=== PATIENT | male | born 1960 | race African-American/Black ===

== ENCOUNTER 2018-09-13 17:38 | Inpatient (IN) | payer OTHER ==
[~2018-09-13] VITALS: Ht 182.9 cm; Wt 54.9 kg
[2018-09-13 17:43] VITALS: BP 115/63
--- NOTE | 2018-09-13 17:43 | NUR ---
ED Nurse Note: PT BROUGHT IN BY EMS FROM [facility] DUE TO FALL INCIDENT AROUND 1230 AND UNWITNESSED. PER EMS, PT WAS COMPLAINING OF LEFT HIP PAIN. NO APPARENT BRUISING OR OPEN WOUNDS. AAO X1 , NON AMBULATORY, WITH NON LABORED BREATHING.
--- NOTE | 2018-09-13 18:32 | NUR ---
ED Nurse Note: COLLECTED BLOOD THEN SENT.
[2018-09-13 18:38] LABS: EOSINOPHILS % (AUTO) 1.1 % (0.0-3.0); HEMATOCRIT 35.7 % (42.0-52.0); LYMPHOCYTES % (AUTO) 17.2 % (20.0-45.0); MEAN CORPUSCULAR VOLUME 71 FL (80-99); MONOCYTES % (AUTO) 7.8 % (1.0-10.0); NEUTROPHILS % (AUTO) 72.9 % (45.0-75.0); PLATELET COUNT 275 K/UL (150-450); RED BLOOD COUNT 5.05 M/UL (4.70-6.10); RED CELL DISTRIBUTION WIDTH 16.9 % (11.6-14.8); WHITE BLOOD COUNT 7.6 K/UL (4.8-10.8)
--- NOTE | 2018-09-13 18:58 | Diagnostic Imaging Report ---
Indication: Pelvic pain Technique: Continuous helical transaxial imaging of the pelvis was obtained from the iliac crest to the pubic symphysis. Coronal 2-D reformats were also obtained. Study obtained in a Siemens sensation [address] Intravenous non-ionic contrast was administered. Total Dose length Product (DLP): 499.[address] Dose Index Volume (CTDIvol): 9.22,9.22 mGy Comparison: None Findings: There is an acute nondisplaced fracture of the intertrochanteric aspect of the left hip. The bones are osteopenic. Degenerative changes of the lower lumbar spine are demonstrated. Aorta is calcified. IVC filter partially visualized. Moderate stool noted. There is a sacral decubitus ulcer noted posteriorly. The possibility of underlying erosion of part of the sacrum is not excluded. Generalized subcutaneous edema noted. Correlate clinically. The bladder is moderately distended. IMPRESSION: Acute intratrochanteric fracture of the left hip. Sacral decubitus ulcer posterior to the coccygeal region. Osteomyelitis is possible. Correlate clinically. Other findings as above. [facility] has communicated the preliminary results to the Emergency Department. Their findings are largely concordant with this report. The CT scanner at [facility] is accredited by the [employer] and the scans are performed using dose optimization techniques as appropriate to a performed exam including Automatic Exposure control.
--- NOTE | 2018-09-13 19:02 | NUR ---
ED Nurse Note: COLLECTED URINE THEN SENT.
--- NOTE | 2018-09-13 19:13 | NUR ---
ED Nurse Note: Patient in bed eating, no s/s of acute distress. Patient is confused, talkative and lying comfortably.
--- NOTE | 2018-09-13 19:13 | NUR ---
HAND-OFF: Report given to JULISSA DAVENPORT.
[2018-09-13 19:20] LABS: APPEARANCE,URINE SLIGHTLY CLOUDY; BILIRUBIN, URINE NEGATIVE (NEGATIVE); COLOR,URINE PALE YELLOW; GLUCOSE, URINE (UA) NEGATIVE (NEGATIVE); KETONES,URINE NEGATIVE (NEGATIVE); LEUKOCYTE ESTERASE ,URINE 2+ (NEGATIVE); NITRITE,URINE POSITIVE (NEGATIVE); PH,URINE 6 (4.5-8.0); PROTEIN,URINE NEGATIVE (NEGATIVE); UROBILINOGEN,URINE NORMAL MG/DL (0.0-1.0)
[2018-09-13 19:26] LABS: ALANINE AMINOTRANSFERASE 36 U/L (12-78); ALBUMIN 3.3 G/DL (3.4-5.0); ALBUMIN/GLOBULIN RATIO 0.8 (1.0-2.7); ALKALINE PHOSPHATASE 75 U/L (46-116); ASPARTATE AMINO TRANSFERASE 17 U/L (15-37); BILIRUBIN,TOTAL 0.4 MG/DL (0.2-1.0); BLOOD UREA NITROGEN 14 mg/dL (7-18); CALCIUM 9.4 MG/DL (8.5-10.1); CARBON DIOXIDE 24 MMOL/L (21-32); CREATINE KINASE 67 U/L (26-308); CREATININE 0.6 MG/DL (0.55-1.30)
--- NOTE | 2018-09-13 19:33 | Emergency Room Report ---
History of Present Illness General Chief Complaint: Multiple Trauma/Fall Source: Patient, EMS Present Illness HPI Patient presents by paramedics for reports of left-sided hip pain History of present illness is limited as the patient is able to provide some input however does have history of dementia Patient reported to be having pain to the left hip after a possible fall patient himself Initially complained of abdominal pain and chest pain after further questioning he does complain of left-sided hip pain There is question if the patient is usually on a wheelchair Allergies: Coded Allergies: No Known Allergies (Unverified , 09/13/18) Patient History Limited by: medical condition Past Medical History: see triage record Reviewed Nursing Documentation: PMH: Agreed; PSxH: Agreed Nursing Documentation-PMH Past Medical History: No History, Except For Hx Hypertension: Yes - Dysphagia, Sacral Pressure Ulcer stage 4 Review of Systems All Other Systems: limited - Other than the ones mentioned in the history of present illness all others are reviewed however they do stay limited due to the patient's mental status Physical Exam Vital Signs Date Time Temp Pulse Resp B/P (MAP) Pulse Ox O2 Delivery O2 Flow Rate FiO2 09/13/18 17:33 98.1 92 20 107/74 (85) 97 Room Air Sp02 EP Interpretation: reviewed, normal General Appearance: no apparent distress Head: normocephalic, atraumatic Eyes: bilateral eye PERRL ENT: normal pharynx, no angioedema Neck: supple Respiratory: lungs clear, no respiratory distress, no retraction Cardiovascular #1: regular rate, rhythm Gastrointestinal: non tender, soft Musculoskeletal: other - Very difficult exam patient does not follow all commands appropriately he does have equal piece hand on the upper extremity patient had some discomfort trying to extend the lower legs Neurologic: responsive - With decreased awareness Skin: no rash Lymphatic: no adenopathy Medical Decision Making Diagnostic Impression: Primary Impression: Multiple injuries due to trauma Additional Impressions: Closed left hip fracture Weak ER Course Multiple differentials and consideration Etiology of the fall was also further investigated for possible other cardiac type pathology CT imaging does show Subtle, Intertrochanteric fracture Patient's blood work otherwise at baseline levels and the patient will be admitted for further inpatient consultation Labs Test 09/13/18 18:25 09/13/18 19:00 09/14/18 04:52 09/15/18 06:01 White Blood Count 7.6 K/UL (4.8-10.8) 7.0 K/UL (4.8-10.8) 4.7 K/UL (4.8-10.8) Red Blood Count 5.05 M/UL (4.70-6.10) 5.11 M/UL (4.70-6.10) 5.11 M/UL (4.70-6.10) Hemoglobin 11.0 G/DL (14.2-18.0) 11.0 G/DL (14.2-18.0) 11.1 G/DL (14.2-18.0) Hematocrit 35.7 % (42.0-52.0) 36.4 % (42.0-52.0) 36.8 % (42.0-52.0) Mean Corpuscular Volume 71 FL (80-99) 71 FL (80-99) 72 FL (80-99) Mean Corpuscular Hemoglobin 21.8 PG (27.0-31.0) 21.5 PG (27.0-31.0) 21.7 PG (27.0-31.0) Mean Corpuscular Hemoglobin Concent 30.9 G/DL (32.0-36.0) 30.1 G/DL (32.0-36.0) 30.1 G/DL (32.0-36.0) Red Cell Distribution Width 16.9 % (11.6-14.8) 17.6 % (11.6-14.8) 17.9 % (11.6-14.8) Platelet Count 275 K/UL (150-450) 284 K/UL (150-450) 262 K/UL (150-450) Mean Platelet Volume 5.5 FL (6.5-10.1) 5.2 FL (6.5-10.1) 5.3 FL (6.5-10.1) Neutrophils (%) (Auto) 72.9 % (45.0-75.0) 73.2 % (45.0-75.0) 57.3 % (45.0-75.0) Lymphocytes (%) (Auto) 17.2 % (20.0-45.0) 17.0 % (20.0-45.0) 28.2 % (20.0-45.0) Monocytes (%) (Auto) 7.8 % (1.0-10.0) 8.0 % (1.0-10.0) 9.2 % (1.0-10.0) Eosinophils (%) (Auto) 1.1 % (0.0-3.0) 1.3 % (0.0-3.0) 4.3 % (0.0-3.0) Basophils (%) (Auto) 1.0 % (0.0-2.0) 0.6 % (0.0-2.0) 1.1 % (0.0-2.0) Sodium Level 138 MMOL/L (136-145) 142 MMOL/L (136-145) 140 MMOL/L (136-145) Potassium Level 3.8 MMOL/L (3.5-5.1) 3.3 MMOL/L (3.5-5.1) 3.7 MMOL/L (3.5-5.1) Chloride Level 104 MMOL/L (98-107) 105 MMOL/L (98-107) 105 MMOL/L (98-107) Carbon Dioxide Level 24 MMOL/L (21-32) 28 MMOL/L (21-32) 25 MMOL/L (21-32) Anion Gap 10 mmol/L (5-15) 9 mmol/L (5-15) 10 mmol/L (5-15) Blood Urea Nitrogen 14 mg/dL (7-18) 9 mg/dL (7-18) 6 mg/dL (7-18) Creatinine 0.6 MG/DL (0.55-1.30) 0.5 MG/DL (0.55-1.30) 0.6 MG/DL (0.55-1.30) Estimat Glomerular Filtration Rate > 60 mL/min (>60) > 60 mL/min (>60) > 60 mL/min (>60) Glucose Level 114 MG/DL (74-106) 109 MG/DL (74-106) 93 MG/DL (74-106) Calcium Level 9.4 MG/DL (8.5-10.1) 9.7 MG/DL (8.5-10.1) 10.3 MG/DL (8.5-10.1) Total Bilirubin 0.4 MG/DL (0.2-1.0) 0.7 MG/DL (0.2-1.0) Aspartate Amino Transf (AST/SGOT) 17 U/L (15-37) 12 U/L (15-37) Alanine Aminotransferase (ALT/SGPT) 36 U/L (12-78) 31 U/L (12-78) Alkaline Phosphatase 75 U/L (46-116) 69 U/L (46-116) Total Creatine Kinase 67 U/L (26-308) Creatine Kinase MB 1.0 NG/ML (0.0-3.6) Creatine Kinase MB Relative Index 1.4 Troponin I 0.000 ng/mL (0.000-0.056) Total Protein 7.2 G/DL (6.4-8.2) 7.1 G/DL (6.4-8.2) Albumin 3.3 G/DL (3.4-5.0) 3.7 G/DL (3.4-5.0) Globulin 3.9 g/dL 3.4 g/dL Albumin/Globulin Ratio 0.8 (1.0-2.7) 1.1 (1.0-2.7) Urine Color Pale yellow Urine Appearance Slightly cloudy Urine pH 6 (4.5-8.0) Urine Specific [place] 1.010 (1.005-1.035) Urine Protein Negative (NEGATIVE) Urine Glucose (UA) Negative (NEGATIVE) Urine Ketones Negative (NEGATIVE) Urine Blood 2+ (NEGATIVE) Urine Nitrite Positive (NEGATIVE) Urine Bilirubin Negative (NEGATIVE) Urine Urobilinogen Normal MG/DL (0.0-1.0) Urine Leukocyte Esterase 2+ (NEGATIVE) Urine RBC 0-2 /HPF (0 - 0) Urine WBC 15-20 /HPF (0 - 0) Urine Squamous Epithelial Cells Few /LPF (NONE/OCC) Urine Bacteria Many /HPF (NONE) Thyroid Stimulating Hormone (TSH) 3.514 uiU/mL (0.358-3.740) Test 09/16/18 05:45 White Blood Count 4.8 K/UL (4.8-10.8) Red Blood Count 5.07 M/UL (4.70-6.10) Hemoglobin 11.2 G/DL (14.2-18.0) Hematocrit 36.3 % (42.0-52.0) Mean Corpuscular Volume 72 FL (80-99) Mean Corpuscular Hemoglobin 22.0 PG (27.0-31.0) Mean Corpuscular Hemoglobin Concent 30.8 G/DL (32.0-36.0) Red Cell Distribution Width 17.7 % (11.6-14.8) Platelet Count 275 K/UL (150-450) Mean Platelet Volume 5.2 FL (6.5-10.1) Neutrophils (%) (Auto) 62.3 % (45.0-75.0) Lymphocytes (%) (Auto) 25.1 % (20.0-45.0) Monocytes (%) (Auto) 9.6 % (1.0-10.0) Eosinophils (%) (Auto) 2.4 % (0.0-3.0) Basophils (%) (Auto) 0.6 % (0.0-2.0) Rhythm Strip Diag. Results EP Interpretation: yes Rate: 80 Rhythm: NSR, no PVC's, no ectopy Chest X-Ray Diagnostic Results Chest X-Ray Diagnostic Results : Chest X-Ray Ordered: Yes # of Views/Limited/Complete: 1 View Indication: Chest Pain EP Interpretation: Yes Interpretation: no consolidation, no effusion, no pneumothorax Impression: No acute disease Electronically Signed by: Gabriel Singer DO CT/MRI/US Diagnostic Results CT/MRI/US Diagnostic Results : Impression CT pelvicCT PELVIS Without Contrast: Subtle left intratrochanteric femoral fracture. Correlate for a decubitus ulcer in the sacrococcygeal area. Underlying osteomyelitis is not excluded. Old right L4 transverse process fracture. Old sacral fracture. IVC filter. Presacral edema. Last Vital Signs Date Time Temp Pulse Resp B/P (MAP) Pulse Ox O2 Delivery O2 Flow Rate FiO2 09/13/18 17:43 98.1 78 18 115/63 99 Room Air Status: improved Disposition: ADMITTED INPATIENT Condition: Serious Referrals: NON PHYSICIAN (PCP) Gabriel Singer DO Sep 13, 2018 19:33
[2018-09-13 20:01] LABS: SODIUM 138 MMOL/L (136-145)
[2018-09-13 20:02] LABS: CHLORIDE 104 MMOL/L (98-107); POTASSIUM 3.8 MMOL/L (3.5-5.1)
[2018-09-13 20:03] LABS: ANION GAP 10 mmol/L (5-15)
--- NOTE | 2018-09-13 20:13 | NUR ---
ED Nurse Note: PATIENT RESTING IN BED, DELUSIONAL ACTIVITY, STILL MILDLY COOPERATIVE. WILL CONTINUE TO MONITOR.
--- NOTE | 2018-09-13 21:03 | NUR ---
ED Nurse Note: CALLED AND TRIED TO GIVE REPORT, RECEIVING NURSE NEEDS MORE TIME TO CARRY OUT PREVIOUS TASKS. WILL CALL AGAIN.
--- NOTE | 2018-09-13 21:29 | NUR ---
ED Nurse Note: CALLED AGAIN TO GIVE REPORT TO BEL DAVENPORT. REPORT TAKEN.
[2018-09-13] MEDS ORDERED: Zolpidem 5mg tab ORAL PRN (21:30)
[2018-09-13] MEDS ORDERED: Morphine Sulfate 4mg/ml Inj (IV USE ONLY) IVP PRN (21:30)
[2018-09-13] MEDS ORDERED: LORazepam Inj 2mg/ml 1ml IV PRN (21:30)
[2018-09-13] MEDS ORDERED: Morphine Sulfate 2mg/ml Inj(IV/IM USE ONLY) IVP PRN (21:30)
[2018-09-13] MEDS ORDERED: Miralax 17gm pkt ORAL PRN (21:30)
--- NOTE | 2018-09-13 21:32 | NUR ---
ED Nurse Note: PATIENT TRANSPORTED TO FLOOR BY [employer].
[2018-09-13] MEDS ORDERED: THIAMINE HCL500 MG PO (21:42)
[2018-09-13] MEDS ORDERED: MULTIVITAMINS1 EAC2 ORAL (21:42)
[2018-09-13] MEDS ORDERED: SENNA8.6 M2 PO (21:42)
[2018-09-13] MEDS ORDERED: [UNRECOGNIZED DRUG - OTHER] TP (21:42)
[2018-09-13] MEDS ORDERED: MEGACE (21:42)
[2018-09-13] MEDS ORDERED: PRO-STAT LIQUID30 ML ORAL (21:42)
[2018-09-13] MEDS ORDERED: NORVASC5 MG ORAL (21:42)
[2018-09-13] MEDS ORDERED: FOLIC ACID1 MG ORAL (21:42)
[2018-09-13] MEDS ORDERED: MEGESTROL400 MG/11 PO (21:42)
[2018-09-13] MEDS ORDERED: ACETAMINOPHEN325 M1 ORAL (21:42)
[2018-09-13] MEDS ORDERED: VITAMIN C250 MG ORAL (21:42)
--- NOTE | 2018-09-13 21:54 | NUR ---
NURSE NOTES: Pt confused, talkative, trying to get out of bed, vitals 116/81, 105hr, 98 temp, 100%ra, called Dr. Logan for admitting orders, waiting for orders.
[2018-09-13] MEDS ORDERED: ZINC50 M1 ORAL (23:18)
[2018-09-13] MEDS: D5 1/2NS 1,000 ML IV SCH (23:49)
[2018-09-14 04:00] VITALS: BP 103/77
[2018-09-14 06:22] LABS: BASOPHILS % (AUTO) 0.6 % (0.0-2.0); EOSINOPHILS % (AUTO) 1.3 % (0.0-3.0); HEMATOCRIT 36.4 % (42.0-52.0); MEAN CORPUSCULAR VOLUME 71 FL (80-99); NEUTROPHILS % (AUTO) 73.2 % (45.0-75.0); PLATELET COUNT 284 K/UL (150-450); RED BLOOD COUNT 5.11 M/UL (4.70-6.10); RED CELL DISTRIBUTION WIDTH 17.6 % (11.6-14.8)
[2018-09-14] MEDS ORDERED: LORazepam Inj 2mg/ml 1ml IV PRN (07:00)
[2018-09-14 07:02] LABS: ALANINE AMINOTRANSFERASE 31 U/L (12-78); ALBUMIN 3.7 G/DL (3.4-5.0); ALBUMIN/GLOBULIN RATIO 1.1 (1.0-2.7); ALKALINE PHOSPHATASE 69 U/L (46-116); ANION GAP 9 mmol/L (5-15); ASPARTATE AMINO TRANSFERASE 12 U/L (15-37); BILIRUBIN,TOTAL 0.7 MG/DL (0.2-1.0); BLOOD UREA NITROGEN 9 mg/dL (7-18); CALCIUM 9.7 MG/DL (8.5-10.1); CARBON DIOXIDE 28 MMOL/L (21-32); CHLORIDE 105 MMOL/L (98-107); CREATININE 0.5 MG/DL (0.55-1.30); POTASSIUM 3.3 MMOL/L (3.5-5.1); SODIUM 142 MMOL/L (136-145)
--- NOTE | 2018-09-14 07:43 | NUR ---
HAND-OFF: Report given to ISSAC Herrera
--- NOTE | 2018-09-14 07:45 | NUR ---
NURSE NOTES: Received patient in bed, asleep @ this time. Breathing is even and unlabored. No s/s of pain or discomfort per FLACC pain scale. IVF is running 2 this time. IV site with no s/s of infiltration. Bed is in lowest position and locked. Will continue plan of care.
[2018-09-14 08:00] VITALS: BP 118/76
[2018-09-14] MEDS: Heparin 5000 units/ml inj SUBQ SCH ×2 (09:00→21:21)
--- NOTE | 2018-09-14 11:06 | Diagnostic Imaging Report ---
Indication: Chest pain Comparison: 09/13/2018 A single view chest radiograph was obtained. Findings: Bones are osteopenic. Heart size is normal. There is some prominence of interstitium but the lungs show no definite infiltrate. Aorta is mildly ectatic. IMPRESSION: Prominent pulmonary interstitium nonspecific.
[2018-09-14 12:00] VITALS: BP 136/75
--- NOTE | 2018-09-14 12:33 | NUR ---
RD ASSESSMENT & RECOMMENDATIONS SEE CARE ACTIVITY FOR COMPLETE ASSESSMENT DAILY ESTIMATED NEEDS: Needs based on Wound healing, underweight/ 54.4kg 30-35 kcals/kg 6245-3412 total kcals 1.5-2.0 g protein/kg 81-109 g total protein 25-30 mL/kg 1064-9528 total fluid mLs NUTRITION DIAGNOSIS: Increased kcal/prot needs R/T wound healing, underweight status as evidenced by pt admitted w/ sacral stage 4 wound, pt at 67% IBW w/ low BMI of 16.3. CURRENT DIET:NPO PO DIET RECOMMENDATIONS: Liberalized REGULAR diet/ texture per UTILIZATION MANAGER + Ensure Enlive TID w/ meals ADDITIONAL RECOMMENDATIONS: * Recalibrated bedscale wt for accurate CBW -> weekly wt monitoring given underweight status * Wound healing: add MVI w/ min 1 tab QD : add Vit C 500mg BID : Ren 1pkt BID w/ diet order : No need for ZnSO4 as pt was receiving it RECORDS MANAGEMENT ENGINEER * UTILIZATION MANAGER evaluation for appropriate texture * Pt on Megace 400mg QD RECORDS MANAGEMENT ENGINEER: consider re-adding it to med list * Monitor lytes, replete as needed (low K)
--- NOTE | 2018-09-14 13:45 | History and Physical Report ---
DATE OF ADMISSION: 09/13/2018 DATE AND TIME SEEN: 09/14/2018 at 12 noon. CONSULTANTS: 1. Ramiro Solis M.D. 2. Reji Llanos M.D. 3. Alen Villegas M.D. CHIEF COMPLAINT: Confusion, fall, weakness, left intertrochanteric fracture. BRIEF HISTORY: This is a 58-year-old male, who lives at [facility] apparently was confused, fell down on his left hip, came to [facility], diagnosed with left intertrochanteric fracture and admitted to medical floor. Currently, confused in bed, not talking much. REVIEW OF SYSTEMS: Not available. PAST MEDICAL HISTORY: Include encephalopathy. PAST SURGICAL HISTORY: Unknown. MEDICATIONS: Include potassium, heparin, lorazepam, , morphine, zolpidem, Zofran, and Tylenol. ALLERGIES: Denies. SOCIAL HISTORY: Positive smoke. Positive alcohol. No intravenous drug abuse. FAMILY HISTORY: Noncontributory. PHYSICAL EXAMINATION: GENERAL: Calm in bed, oriented x1, in no acute distress. VITAL SIGNS: Temperature is 99, pulse 108, respirations 20, blood pressure 119/76. CARDIOVASCULAR: No murmur. LUNGS: Distant and clear. ABDOMEN: Bowel sounds positive. Nontender. Nondistended. EXTREMITIES: No cyanosis, clubbing, or edema. The bilateral legs slightly contracted. NEUROLOGIC: The patient moves all extremities slightly weak. LABORATORY AND DIAGNOSTIC DATA: Labs at this time show hemoglobin and hematocrit 11/36, otherwise CBC is normal. BMP show potassium 3.3, creatinine 0.9. Urinalysis show 2+ leukocyte esterase. ASSESSMENT: 1. Left intertrochanteric fracture. 2. UTI. 3. Fall. 4. Weakness. 5. Confusion. PLAN: 1. Antibiotics per Infectious Disease. 2. PT and OT pending. 3. Surgery, IV fluids. 4. Orthopedic to follow. 5. Continue to follow the patient. Froilan Logan D.O. DR: CINDA JOB#: [id number] CC:
--- NOTE | 2018-09-14 14:11 | Consultation ---
Consult Note Consult Note Patient seen/evaluated. Non-ambulatory due to TBI back in April. Patient has a Stage IV Decubitus on the sacrum. Spoke with Pilar his . Recommend none surgical treatment in view of the none displaced IT fx, none ambulatory status, and Decubitus ulcer in the proximity of the left hip increasing the risk of infection. Family is in agreement. Will order PT for bed to chair transfer, toe touch weight bearing Left lower extremity. Thank you Ramiro Solis MD Sep 14, 2018 14:11
--- NOTE | 2018-09-14 14:20 | NUR ---
NURSE NOTES: Patient was seen by Dr. Solis and he spoke to patient's about plan of care. Per Dr. Solis , no surgery on him. patient's wanted to talk to Dr. Gurrola regarding discharge planning. Rn explained to the but she wanted to talk to . Rn left a message to Dr. gurrola with 's phone number.
--- NOTE | 2018-09-14 15:04 | Consultation ---
History of Present Illness General Date patient seen: Sep 14, 2018 Chief Complaint: Multiple Trauma/Fall Reason for Consultation: decubitus ulcer Present Illness HPI 58 year old male with history of TBI who presented from longterm for evaluation after fall. Patient with recent fracture seen by ortho and stage 4 sacral wound. surgery called to evaluate and assist with care. patient seen, chart reviewed, patient examined. Allergies: Coded Allergies: No Known Allergies (Unverified , 09/13/18) Medication History Scheduled Amino Acids/Protein Hydrolys (Pro-Stat Liquid), 30 ML ORAL TWICE A DAY, ( Reported) Amlodipine Besylate (Norvasc), 5 MG ORAL DAILY, (Reported) Ascorbic Acid* (Vitamin C*), 250 MG ORAL TWICE A DAY, (Reported) Folic Acid* (Folic Acid*), 1 MG ORAL DAILY, (Reported) Megestrol Acetate (Megestrol Acetate), 400 MG PO DAILY, (Reported) Multivitamins* (Multivitamins*), 1 TAB ORAL DAILY, (Reported) Petrolatum,White (White Petrolatum), 453.6 GM TP Q4HR, (Reported) Sennosides (Senna), 8.6 MG PO QHS, (Reported) Thiamine Hcl (Thiamine Hcl), Unknown Dose PO DAILY, (Reported) Zinc (Zinc), 220 MG ORAL DAILY, (Reported) Scheduled PRN Acetaminophen* (Acetaminophen 325MG Tablet*), 650 MG ORAL Q4H PRN for Mild Pain/ Temp > 100.5, (Reported) Miscellaneous Medications [megace oral], (Reported) Patient History Limited by: medical condition History Provided By: Patient, Medical Record, PMD Healthcare decision maker Resuscitation status Full Code Advanced Directive on File Past Medical/Surgical History Past Medical/Surgical History: (1) Fall (2) Multiple injuries due to trauma (3) Subdural hematoma (4) Sacral decubitus ulcer, stage IV (5) Hypertension (6) Traumatic brain injury Review of Systems All Other Systems: negative except mentioned in HPI ROS Narrative unable to provide Physical Exam General Appearance: no apparent distress Lines, tubes and drains: peripheral HEENT: mucous membranes moist Neck: normal inspection Respiratory/Chest: no respiratory distress, no accessory muscle use, decreased breath sounds Cardiovascular/Chest: normal rate, regular rhythm Abdomen: soft, no organomegaly, no mass Extremities: normal inspection Skin Exam: warm/dry Last 24 Hour Vital Signs Date Time Temp Pulse Resp B/P (MAP) Pulse Ox O2 Delivery O2 Flow Rate FiO2 09/14/18 12:00 98.3 109 20 136/75 (95) 100 09/14/18 09:00 Room Air 09/14/18 08:00 99.0 108 20 118/76 (90) 97 09/14/18 04:00 97.5 88 20 103/77 (86) 97 09/13/18 23:18 Room Air 09/13/18 21:41 98.1 78 18 115/63 99 Room Air 09/13/18 17:43 98.1 78 18 115/63 99 Room Air 09/13/18 17:43 88 15 Room Air 09/13/18 17:33 98.1 92 20 107/74 (85) 97 Room Air Intake and Output 09/13/18 09/14/18 19:00 07:00 Intake Total 50 ml Balance 50 ml Intake IV Total 50 ml # Voids 2 Laboratory Tests Test 09/13/18 18:25 09/13/18 19:00 09/14/18 04:52 White Blood Count 7.6 K/UL (4.8-10.8) 7.0 K/UL (4.8-10.8) Red Blood Count 5.05 M/UL (4.70-6.10) 5.11 M/UL (4.70-6.10) Hemoglobin 11.0 G/DL (14.2-18.0) L 11.0 G/DL (14.2-18.0) L Hematocrit 35.7 % (42.0-52.0) L 36.4 % (42.0-52.0) L Mean Corpuscular Volume 71 FL (80-99) L 71 FL (80-99) L Mean Corpuscular Hemoglobin 21.8 PG (27.0-31.0) L 21.5 PG (27.0-31.0) L Mean Corpuscular Hemoglobin Concent 30.9 G/DL (32.0-36.0) L 30.1 G/DL (32.0-36.0) L Red Cell Distribution Width 16.9 % (11.6-14.8) H 17.6 % (11.6-14.8) H Platelet Count 275 K/UL (150-450) 284 K/UL (150-450) Mean Platelet Volume 5.5 FL (6.5-10.1) L 5.2 FL (6.5-10.1) L Neutrophils (%) (Auto) 72.9 % (45.0-75.0) 73.2 % (45.0-75.0) Lymphocytes (%) (Auto) 17.2 % (20.0-45.0) L 17.0 % (20.0-45.0) L Monocytes (%) (Auto) 7.8 % (1.0-10.0) 8.0 % (1.0-10.0) Eosinophils (%) (Auto) 1.1 % (0.0-3.0) 1.3 % (0.0-3.0) Basophils (%) (Auto) 1.0 % (0.0-2.0) 0.6 % (0.0-2.0) Sodium Level 138 MMOL/L (136-145) 142 MMOL/L (136-145) Potassium Level 3.8 MMOL/L (3.5-5.1) 3.3 MMOL/L (3.5-5.1) L Chloride Level 104 MMOL/L (98-107) 105 MMOL/L (98-107) Carbon Dioxide Level 24 MMOL/L (21-32) 28 MMOL/L (21-32) Anion Gap 10 mmol/L (5-15) 9 mmol/L (5-15) Blood Urea Nitrogen 14 mg/dL (7-18) 9 mg/dL (7-18) Creatinine 0.6 MG/DL (0.55-1.30) 0.5 MG/DL (0.55-1.30) L Estimat Glomerular Filtration Rate > 60 mL/min (>60) > 60 mL/min (>60) Glucose Level 114 MG/DL (74-106) H 109 MG/DL (74-106) H Calcium Level 9.4 MG/DL (8.5-10.1) 9.7 MG/DL (8.5-10.1) Total Bilirubin 0.4 MG/DL (0.2-1.0) 0.7 MG/DL (0.2-1.0) Aspartate Amino Transf (AST/SGOT) 17 U/L (15-37) 12 U/L (15-37) L Alanine Aminotransferase (ALT/SGPT) 36 U/L (12-78) 31 U/L (12-78) Alkaline Phosphatase 75 U/L (46-116) 69 U/L (46-116) Total Creatine Kinase 67 U/L (26-308) Creatine Kinase MB 1.0 NG/ML (0.0-3.6) Creatine Kinase MB Relative Index 1.4 Troponin I 0.000 ng/mL (0.000-0.056) Total Protein 7.2 G/DL (6.4-8.2) 7.1 G/DL (6.4-8.2) Albumin 3.3 G/DL (3.4-5.0) L 3.7 G/DL (3.4-5.0) Globulin 3.9 g/dL 3.4 g/dL Albumin/Globulin Ratio 0.8 (1.0-2.7) L 1.1 (1.0-2.7) Urine Color Pale yellow Urine Appearance Slightly cloudy Urine pH 6 (4.5-8.0) Urine Specific [place] 1.010 (1.005-1.035) Urine Protein Negative (NEGATIVE) Urine Glucose (UA) Negative (NEGATIVE) Urine Ketones Negative (NEGATIVE) Urine Blood 2+ (NEGATIVE) H Urine Nitrite Positive (NEGATIVE) H Urine Bilirubin Negative (NEGATIVE) Urine Urobilinogen Normal MG/DL (0.0-1.0) Urine Leukocyte Esterase 2+ (NEGATIVE) H Urine RBC 0-2 /HPF (0 - 0) H Urine WBC 15-20 /HPF (0 - 0) H Urine Squamous Epithelial Cells Few /LPF (NONE/OCC) Urine Bacteria Many /HPF (NONE) H Thyroid Stimulating Hormone (TSH) 3.514 uiU/mL (0.358-3.740) Height (Feet): 6 Height (Inches): 0.00 Weight (Pounds): 120 Medications Current Medications Medications (Trade) Dose Ordered Sig/Thomas Route PRN Reason Start Time Stop Time Status Last Admin Dose Admin Acetaminophen (Tylenol) 650 mg Q4H PRN ORAL fever 09/13/18 21:30 10/13/18 21:29 Dextrose (Dextrose 50%) 25 ml Q30M PRN IV Hypoglycemia 09/13/18 21:30 8/18/19 21:29 Dextrose (Dextrose 50%) 50 ml Q30M PRN IV Hypoglycemia 09/13/18 21:30 10/13/18 21:29 Dextrose/Sodium Chloride 1,000 ml @ 50 mls/hr Q20H IV 09/13/18 21:24 10/13/18 21:23 09/13/18 23:49 Heparin Sodium (Porcine) (Heparin 5000 units/ml) 5,000 units EVERY 12 HOURS SUBQ 09/14/18 09:00 10/14/18 08:59 Lorazepam (Ativan 2mg/ml 1ml) 1 mg Q4H PRN IV For Anxiety 09/14/18 07:00 09/21/18 06:59 Morphine Sulfate (Morphine Sulfate) 2 mg Q4H PRN IVP For Pain 4-6 09/13/18 21:30 09/20/18 21:29 Morphine Sulfate (Morphine Sulfate) 4 mg Q4H PRN IVP For Pain 7-10 09/13/18 21:30 09/20/18 21:29 Ondansetron HCl (Zofran) 4 mg Q6H PRN IVP Nausea & Vomiting 09/13/18 21:30 10/13/18 21:29 Polyethylene Glycol (Miralax) 17 gm HSPRN PRN ORAL Constipation 09/13/18 21:30 10/13/18 21:29 Quetiapine Fumarate (SEROquel) 50 mg Q12HR ORAL 09/14/18 00:00 10/14/18 00:00 09/14/18 09:46 Zolpidem Tartrate (Ambien) 5 mg HSPRN PRN ORAL Insomnia 09/13/18 21:30 09/20/18 21:29 Assessment/Plan Problem List: (1) Fall ICD Codes: W19.XXXA - Unspecified fall, initial encounter SNOMED: 4032949, 367497268 (2) Multiple injuries due to trauma Assessment & Plan: Left hip nondisplaced intertrochanteric fracture with the patient with traumatic brain injury as well as nonambulatory status with a decubitus ulcer close to the area of the hip. appreciate ortho input plan for on operative management at this time DAILY ESTIMATED NEEDS: Needs based on Wound healing, underweight/ 54.4kg 30-35 kcals/kg 8042-4167 total kcals 1.5-2.0 g protein/kg 81-109 g total protein 25-30 mL/kg 0185-9111 total fluid mLs NUTRITION DIAGNOSIS: Increased kcal/prot needs R/T wound healing, underweight status as evidenced by pt admitted w/ sacral stage 4 wound, pt at 67% IBW w/ low BMI of 16.3. CURRENT DIET:low salt PO DIET RECOMMENDATIONS: Liberalized REGULAR diet/ texture per CATEGORY MANAGER + Ensure Enlive TID w/ meals ADDITIONAL RECOMMENDATIONS: * Recalibrated bedscale wt for accurate CBW -> weekly wt monitoring given underweight status * Wound healing: add MVI w/ min 1 tab QD : add Vit C 500mg BID : Ren 1pkt BID w/ diet order : No need for ZnSO4 as pt was receiving it CLINICAL RESEARCH TECHNICIAN * CATEGORY MANAGER evaluation for appropriate texture * Pt on Megace 400mg QD CLINICAL RESEARCH TECHNICIAN: consider re-adding it to med list * Monitor lytes, replete as needed (low K) ICD Codes: T07.XXXA - Unspecified multiple injuries, initial encounter SNOMED: 539727097 (3) Subdural hematoma ICD Codes: S06.5X9A - Traumatic subdural hemorrhage with loss of consciousness of unspecified duration, initial encounter SNOMED: 913902109 (4) Sacral decubitus ulcer, stage IV Assessment & Plan: Patient presented from longterm with stage 4 sacral decubitus ulcer with palpable bone wound overall fairly clean with some biofilm and minimal sloth seems to have been receiving care and has had prior debridement likely patient spends majority of time in bed during recovery will need close monitoring and care to ensure improving and not deterioration nutritional optimization ICD Codes: L89.154 - Pressure ulcer of sacral region, stage 4 SNOMED: 222032207, 209038195 (5) Hypertension ICD Codes: I10 - Essential (primary) hypertension SNOMED: 53892094 (6) Traumatic brain injury ICD Codes: S06.9X9A - Unspecified intracranial injury with loss of consciousness of unspecified duration, initial encounter SNOMED: 325960245 Mario Moses Sep 14, 2018 15:04
[2018-09-14 16:00] VITALS: BP 119/85
--- NOTE | 2018-09-14 16:53 | NUR ---
PRODUCTION LINE WORKERREGIONAL MARKETING MANAGER 58 [facility]/O [facility] [facility] CC:FALL SI:CLOSED LEFT HIP FRACTURE . FALL VS: BP 107/74, P 92, T 98.1, RR 20, SpO2 97 HGB 11.0 HCT 35.7, GLUCOSE [address]: Acute intratrochanteric fracture of the left hip. IS:NS x1L IV K-DUR ADMITTED TO MED/SURG DCP: RETURN TO [facility]
[2018-09-14] MEDS: D5 1/2NS 1,000 ML IV SCH (17:24)
--- NOTE | 2018-09-14 19:35 | NUR ---
NURSE NOTES: Pt received in bed, talkative, no c/o pain or signs of distress, IV fluids running, IV site wrapped in kerlix, bed in lowest position, will continue to monitor.
--- NOTE | 2018-09-14 19:40 | NUR ---
HAND-OFF: Report given to Ashlie.
[2018-09-14 20:00] VITALS: BP 117/77
--- NOTE | 2018-09-14 22:00 | Consultation ---
History of Present Illness General Date patient seen: Sep 14, 2018 Chief Complaint: Multiple Trauma/Fall Reason for Consultation: decubitus ulcer Present Illness HPI 58 y/o M with xh of TBI april 2018, stage IV sacral decubitus ulcer, non ambulatory status, [place] resident presented to ED on 09/13 with confusion and after a fall landed on his left hip. He was found to have L intertrochanteric fracture. Allergies: Coded Allergies: No Known Allergies (Unverified , 09/13/18) Medication History Scheduled Amino Acids/Protein Hydrolys (Pro-Stat Liquid), 30 ML ORAL TWICE A DAY, ( Reported) Amlodipine Besylate (Norvasc), 5 MG ORAL DAILY, (Reported) Ascorbic Acid* (Vitamin C*), 250 MG ORAL TWICE A DAY, (Reported) Folic Acid* (Folic Acid*), 1 MG ORAL DAILY, (Reported) Megestrol Acetate (Megestrol Acetate), 400 MG PO DAILY, (Reported) Multivitamins* (Multivitamins*), 1 TAB ORAL DAILY, (Reported) Petrolatum,White (White Petrolatum), 453.6 GM TP Q4HR, (Reported) Sennosides (Senna), 8.6 MG PO QHS, (Reported) Thiamine Hcl (Thiamine Hcl), Unknown Dose PO DAILY, (Reported) Zinc (Zinc), 220 MG ORAL DAILY, (Reported) Scheduled PRN Acetaminophen* (Acetaminophen 325MG Tablet*), 650 MG ORAL Q4H PRN for Mild Pain/ Temp > 100.5, (Reported) Miscellaneous Medications [megace oral], (Reported) Patient History Healthcare decision maker Resuscitation status Full Code Advanced Directive on File Patient History Narrative Pmhx: as above Shx: Positive smoke. Positive alcohol. No intravenous drug abuse. Fhx: non contributory Review of Systems All Other Systems: negative except mentioned in HPI Physical Exam Physical Exam Narrative GENERAL: Calm in bed, oriented x1, in no acute distress. CARDIOVASCULAR: No murmur. LUNGS: Distant and clear. ABDOMEN: Bowel sounds positive. Nontender. Nondistended. EXTREMITIES: No cyanosis, clubbing, or edema. The bilateral legs slightly contracted. NEUROLOGIC: The patient moves all extremities slightly weak. Last 24 Hour Vital Signs Date Time Temp Pulse Resp B/P (MAP) Pulse Ox O2 Delivery O2 Flow Rate FiO2 09/14/18 21:00 Room Air 09/14/18 16:00 97.9 94 20 119/85 (96) 99 09/14/18 12:00 98.3 109 20 136/75 (95) 100 09/14/18 09:00 Room Air 09/14/18 08:00 99.0 108 20 118/76 (90) 97 09/14/18 04:00 97.5 88 20 103/77 (86) 97 09/13/18 23:18 Room Air Intake and Output 09/13/18 09/14/18 19:00 07:00 Intake Total 50 ml Balance 50 ml Intake IV Total 50 ml # Voids 2 Laboratory Tests Test 09/14/18 04:52 White Blood Count 7.0 K/UL (4.8-10.8) Red Blood Count 5.11 M/UL (4.70-6.10) Hemoglobin 11.0 G/DL (14.2-18.0) L Hematocrit 36.4 % (42.0-52.0) L Mean Corpuscular Volume 71 FL (80-99) L Mean Corpuscular Hemoglobin 21.5 PG (27.0-31.0) L Mean Corpuscular Hemoglobin Concent 30.1 G/DL (32.0-36.0) L Red Cell Distribution Width 17.6 % (11.6-14.8) H Platelet Count 284 K/UL (150-450) Mean Platelet Volume 5.2 FL (6.5-10.1) L Neutrophils (%) (Auto) 73.2 % (45.0-75.0) Lymphocytes (%) (Auto) 17.0 % (20.0-45.0) L Monocytes (%) (Auto) 8.0 % (1.0-10.0) Eosinophils (%) (Auto) 1.3 % (0.0-3.0) Basophils (%) (Auto) 0.6 % (0.0-2.0) Sodium Level 142 MMOL/L (136-145) Potassium Level 3.3 MMOL/L (3.5-5.1) L Chloride Level 105 MMOL/L (98-107) Carbon Dioxide Level 28 MMOL/L (21-32) Anion Gap 9 mmol/L (5-15) Blood Urea Nitrogen 9 mg/dL (7-18) Creatinine 0.5 MG/DL (0.55-1.30) L Estimat Glomerular Filtration Rate > 60 mL/min (>60) Glucose Level 109 MG/DL (74-106) H Calcium Level 9.7 MG/DL (8.5-10.1) Total Bilirubin 0.7 MG/DL (0.2-1.0) Aspartate Amino Transf (AST/SGOT) 12 U/L (15-37) L Alanine Aminotransferase (ALT/SGPT) 31 U/L (12-78) Alkaline Phosphatase 69 U/L (46-116) Total Protein 7.1 G/DL (6.4-8.2) Albumin 3.7 G/DL (3.4-5.0) Globulin 3.4 g/dL Albumin/Globulin Ratio 1.1 (1.0-2.7) Thyroid Stimulating Hormone (TSH) 3.514 uiU/mL (0.358-3.740) Height (Feet): 6 Height (Inches): 0.00 Weight (Pounds): 120 Medications Current Medications Medications (Trade) Dose Ordered Sig/Thomas Route PRN Reason Start Time Stop Time Status Last Admin Dose Admin Acetaminophen (Tylenol) 650 mg Q4H PRN ORAL fever 09/13/18 21:30 10/13/18 21:29 Dextrose (Dextrose 50%) 25 ml Q30M PRN IV Hypoglycemia 09/13/18 21:30 10/13/18 21:29 Dextrose (Dextrose 50%) 50 ml Q30M PRN IV Hypoglycemia 09/13/18 21:30 10/13/18 21:29 Dextrose/Sodium Chloride 1,000 ml @ 50 mls/hr Q20H IV 09/13/18 21:24 10/13/18 21:23 09/14/18 17:24 Heparin Sodium (Porcine) (Heparin 5000 units/ml) 5,000 units EVERY 12 HOURS SUBQ 09/14/18 09:00 10/14/18 08:59 09/14/18 21:21 Lorazepam (Ativan 2mg/ml 1ml) 1 mg Q4H PRN IV For Anxiety 09/14/18 07:00 09/21/18 06:59 Morphine Sulfate (Morphine Sulfate) 2 mg Q4H PRN IVP For Pain 4-6 09/13/18 21:30 09/20/18 21:29 Morphine Sulfate (Morphine Sulfate) 4 mg Q4H PRN IVP For Pain 7-10 09/13/18 21:30 09/20/18 21:29 Ondansetron HCl (Zofran) 4 mg Q6H PRN IVP Nausea & Vomiting 09/13/18 21:30 10/13/18 21:29 Polyethylene Glycol (Miralax) 17 gm HSPRN PRN ORAL Constipation 09/13/18 21:30 10/13/18 21:29 Quetiapine Fumarate (SEROquel) 50 mg Q12HR ORAL 09/14/18 00:00 10/14/18 00:00 09/14/18 21:20 Zolpidem Tartrate (Ambien) 5 mg HSPRN PRN ORAL Insomnia 09/13/18 21:30 09/20/18 21:29 Assessment/Plan Assessment/Plan: Abx: none Assessment: Afebrile No leukocytosis -CXR: Prominent pulmonary interstitium nonspecific Pyuria -u/a wbc 15-20, nit +, leuk +2; ucx p s/p Fall L hip intertrochanteric fracture -CT Pelvis: Acute intratrochanteric fracture of the left hip. Sacral decubitus ulcer posterior to the coccygeal region. Osteomyelitis is possible. Correlate clinically. Other findings as above. 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 Will continue to follow along with you. Discussed with Armida Ferreira M.D. Sep 14, 2018 22:00
--- NOTE | 2018-09-14 23:15 | Consultation ---
DATE OF CONSULTATION: 09/14/2018 ORTHOPEDIC CONSULTATION CONSULTING PHYSICIAN: Ramiro Solis M.D. REQUESTING PHYSICIAN: Froilan Logan D.O. REASON FOR CONSULTATION: Left intertrochanteric fracture. BRIEF HISTORY: The patient is a pleasant 58-year-old gentleman who is unable to provide history. I have obtained the history from his , Pilar. Apparently, he had a traumatic brain injury back in April 2018 and has been treating. He was at [facility]. Subsequently, he was transferred to a halfway facility. He has been nonambulatory since his TBI. They were trying to get him up and moving, however, he has not been able to do so. He has developed grade 4 decubitus ulcer. At the time of his admission, he was also noted to have had a fall and had some left-sided hip pain. CT scan of left hip revealed a left nondisplaced IT fracture that could be seen on CT scan. The patient has a decubitus ulcer close to the proximity of the hip. PAST MEDICAL HISTORY: Significant for history of traumatic brain injury in April 2018. PAST SURGICAL HISTORY: None available. MEDICATIONS: Please see chart. This was reviewed and reconciled. ALLERGIES: No known drug allergies. SOCIAL HISTORY: He has a supportive , Pilar. He was in [facility] for some time after his TBI and subsequently was transferred to a halfway facility. He is nonambulatory. He has developed stage IV decubitus ulcers. PHYSICAL EXAMINATION: GENERAL: Examination of the patient today reveals a pleasant gentleman, but he is unable to cooperate with examination. MUSCULOSKELETAL: Examination of left hip reveals that he has got some pain with motion of the hip. There is no shortening. There is no external rotation. He has got some tenderness over the pubic area as well as over the trochanteric area. He is able to move his hip, although it is painful. There is no leg length discrepancy or malalignment. He does have a grade 4 decubitus ulcer in the posterior aspect of the sacrum that is extending over towards the trochanteric area on the left side. X-RAYS, MRIS, CT SCANS: CT scan of left hip is reviewed. I personally reviewed the CT scan. There is a nondisplaced intertrochanteric fracture involving the calcar. The fracture line could not be followed all the way through, although it could be seen on the greater trochanter as well as lesser trochanter. The rest of the hip appeared to be intact. IMPRESSION: Left hip nondisplaced intertrochanteric fracture with the patient with traumatic brain injury as well as nonambulatory status with a decubitus ulcer close to the area of the hip. PLAN: I had a discussion with the patient's , Pilar, and explained to her my findings. I explained to her the nature of the problem with the left hip and my recommendation would be to proceed with nonsurgical treatment. We talked about toe-touch weightbearing status and the apparent inability of the patient to follow commands and I recommended just to have [id number] transfer for the next 6 weeks with toe-touch weightbearing on the left lower extremity. He is not ambulatory at this time and once the hip fracture heals in about 6 weeks' time, he can start putting more and more pressure on the left hip and hopefully get into an ambulatory status provided that his traumatic brain injury will improve. All questions were answered. The patient's agreed with nonsurgical treatment plan. I will see the patient back in about 10 days to 2 weeks' time in the office for repeat x-rays of the left hip. An x-ray of the left hip and physical therapy was ordered. Ramiro Solis M.D. DR: Nakul JOB#: [id number] CC:
[2018-09-15] VITALS: BP 119/76
[2018-09-15 04:00] VITALS: BP 132/91
--- NOTE | 2018-09-15 07:39 | NUR ---
HAND-OFF: Report given to ISSAC Perrin.
[2018-09-15 07:42] LABS: BASOPHILS % (AUTO) 1.1 % (0.0-2.0); EOSINOPHILS % (AUTO) 4.3 % (0.0-3.0); HEMATOCRIT 36.8 % (42.0-52.0); HEMOGLOBIN 11.1 G/DL (14.2-18.0); LYMPHOCYTES % (AUTO) 28.2 % (20.0-45.0); MEAN CORPUSCULAR VOLUME 72 FL (80-99); MONOCYTES % (AUTO) 9.2 % (1.0-10.0); NEUTROPHILS % (AUTO) 57.3 % (45.0-75.0); PLATELET COUNT 262 K/UL (150-450); RED BLOOD COUNT 5.11 M/UL (4.70-6.10); RED CELL DISTRIBUTION WIDTH 17.9 % (11.6-14.8); WHITE BLOOD COUNT 4.7 K/UL (4.8-10.8)
--- NOTE | 2018-09-15 07:48 | NUR ---
NURSE NOTES: pt in bed with no sob nor in any form of distress noted. Breating regular and unlabored. denies pain at this time. IVF running. bed in lowest position. call light within reach at all time. will continue to monitor
[2018-09-15 08:00] VITALS: BP 127/90
[2018-09-15 08:18] LABS: ANION GAP 10 mmol/L (5-15); BLOOD UREA NITROGEN 6 mg/dL (7-18); CALCIUM 10.3 MG/DL (8.5-10.1); CARBON DIOXIDE 25 MMOL/L (21-32); CHLORIDE 105 MMOL/L (98-107); CREATININE 0.6 MG/DL (0.55-1.30); POTASSIUM 3.7 MMOL/L (3.5-5.1); SODIUM 140 MMOL/L (136-145)
[2018-09-15] MEDS: Heparin 5000 units/ml inj SUBQ SCH ×2 (09:03→20:47)
--- NOTE | 2018-09-15 09:10 | General Progress Note ---
Assessment/Plan Problem List: (1) UTI (urinary tract infection) ICD Codes: N39.0 - Urinary tract infection, site not specified SNOMED: 61531038 (2) Weak ICD Codes: R53.1 - Weakness SNOMED: 52421123 (3) Confusion ICD Codes: R41.0 - Disorientation, unspecified SNOMED: 838791505 (4) Closed left hip fracture ICD Codes: S72.002A - Fracture of unspecified part of neck of left femur, initial encounter for closed fracture SNOMED: 262608951 (5) Anemia ICD Codes: D64.9 - Anemia, unspecified SNOMED: 390065390 (6) Fall ICD Codes: W19.XXXA - Unspecified fall, initial encounter SNOMED: 8022501, 173580252 (7) Multiple injuries due to trauma ICD Codes: T07.XXXA - Unspecified multiple injuries, initial encounter SNOMED: 172184740 (8) Hypertension ICD Codes: I10 - Essential (primary) hypertension SNOMED: 84195472 Status: stable, progressing Assessment/Plan: pt diet pain control abx cbc bmp am ortho f/u Subjective Constitutional: Reports: weakness Allergies: Coded Allergies: No Known Allergies (Unverified , 09/13/18) All Systems: reviewed and negative except above Subjective calm in bed Objective Last 24 Hour Vital Signs Date Time Temp Pulse Resp B/P (MAP) Pulse Ox O2 Delivery O2 Flow Rate FiO2 09/15/18 08:00 97.8 98 19 127/90 (102) 99 09/15/18 04:00 97.8 87 19 132/91 (105) 99 09/15/18 00:00 97.5 92 19 119/76 (90) 100 09/14/18 21:00 Room Air 09/14/18 20:00 96.6 94 19 117/77 (90) 96 09/14/18 16:00 97.9 94 20 119/85 (96) 99 09/14/18 12:00 98.3 109 20 136/75 (95) 100 Intake and Output 09/14/18 09/15/18 18:59 06:59 Intake Total 600 ml 450 ml Balance 600 ml 450 ml IV Total 600 ml 450 ml # Voids 2 2 Laboratory Tests 09/15/18 06:01: White Blood Count 4.7L, Red Blood Count 5.11, Hemoglobin 11.1L, Hematocrit 36.8L , Mean Corpuscular Volume 72L, Mean Corpuscular Hemoglobin 21.7L, Mean Corpuscular Hemoglobin Concent 30.1L, Red Cell Distribution Width 17.9H, Platelet Count 262, Mean Platelet Volume 5.3L, Neutrophils (%) (Auto) 57.3, Lymphocytes (%) (Auto) 28.2, Monocytes (%) (Auto) 9.2, Eosinophils (%) (Auto) 4.3H, Basophils (%) (Auto) 1.1, Sodium Level 140, Potassium Level 3.7, Chloride Level 105, Carbon Dioxide Level 25, Anion Gap 10, Blood Urea Nitrogen 6L, Creatinine 0.6, Estimat Glomerular Filtration Rate > 60, Glucose Level 93, Calcium Level 10.3H Height (Feet): 6 Height (Inches): 0.00 Weight (Pounds): 120 General Appearance: lethargic EENT: normal ENT inspection Neck: normal alignment Cardiovascular: normal peripheral pulses, normal rate, regular rhythm Respiratory/Chest: chest wall non-tender, lungs clear, normal breath sounds Abdomen: normal bowel sounds, non tender, soft Extremities: normal inspection Edema: no edema noted Arm (L), no edema noted Arm (R), no edema noted Leg (L), no edema noted Leg (R), no edema noted Pedal (L), no edema noted Pedal (R), no edema noted Generalized Neurologic: motor weakness Skin: normal pigmentation, warm/dry Froilan Logan DO Sep 15, 2018 09:10
[2018-09-15 12:00] VITALS: BP 133/57
--- NOTE | 2018-09-15 12:45 | NUR ---
P.T NOTE: P.T EVALUATION COMPLETED. PATIENT IS ALERT, RESPONDS TO NAME HOWEVER SPEAKS UNINTELLIGIBLY , CONFUSED , ONLY ABLE TO FOLLOW SIMPLE COMMANDS INCONSISTENTLY. PATIENT PRESENTED IN POSITION AND NOT ABLE TO INDICATE PAIN HOWEVER BECOMES APPREHENSIVE WHEN L HIP IS BEING PASSIVELY MOVED. PATIENT IS RESISTIVE AND DEPENDENT IN ALL AREAS OF MOBILITIES. BASED ON P.T EVALUATION, PATIENT IS A POOR CANDIDATE FOR SKILLED SERVICES PATIENT IS ALREADY BASELINE. P.T. RECOMMEND RETURN TO [facility]IOR [facility] AT [facility] FOR TOTAL CARE AND COMFORT. [facility]. THANK YOU FOR THIS REFERRAL.
--- NOTE | 2018-09-15 13:07 | Cardiology Report ---
APPROVED REPORT EKG Measurement Heart [id number] Normal sinus rhythm Septal infarct, age undetermined Abnormal ECG
[2018-09-15] MEDS: D5 1/2NS 1,000 ML IV SCH (13:32)
[2018-09-15 16:00] VITALS: BP 129/64
--- NOTE | 2018-09-15 17:01 | NUR ---
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 FALL VS: BP 133/57, P 98, T 97.6, RR 19, SpO2 99 WBC 4.7, H&H 11.1/36.8, BUN 6 IS:D5/NS x1L IV SEROQUEL 50mg HEPARIN SUBQ ADMITTED TO MED/SURG
--- NOTE | 2018-09-15 19:21 | NUR ---
HAND-OFF: Report given to ISSAC Dailey.
--- NOTE | 2018-09-15 19:26 | NUR ---
NURSE NOTES: Pt in bed at lowest position, iv intact, no c/o pain or signs of distress, will continue to monitor.
[2018-09-15 20:00] VITALS: BP 114/64
[2018-09-16] VITALS: BP 109/66
[2018-09-16 04:00] VITALS: BP 129/83
[2018-09-16 06:37] LABS: BASOPHILS % (AUTO) 0.6 % (0.0-2.0); EOSINOPHILS % (AUTO) 2.4 % (0.0-3.0); HEMATOCRIT 36.3 % (42.0-52.0); HEMOGLOBIN 11.2 G/DL (14.2-18.0); LYMPHOCYTES % (AUTO) 25.1 % (20.0-45.0); MEAN CORPUSCULAR VOLUME 72 FL (80-99); MONOCYTES % (AUTO) 9.6 % (1.0-10.0); NEUTROPHILS % (AUTO) 62.3 % (45.0-75.0); PLATELET COUNT 275 K/UL (150-450); RED BLOOD COUNT 5.07 M/UL (4.70-6.10); RED CELL DISTRIBUTION WIDTH 17.7 % (11.6-14.8); WHITE BLOOD COUNT 4.8 K/UL (4.8-10.8)
--- NOTE | 2018-09-16 07:09 | NUR ---
HAND-OFF: Report given to ISSAC Tiwari.
[2018-09-16 07:10] LABS: ANION GAP 10 mmol/L (5-15); BLOOD UREA NITROGEN 10 mg/dL (7-18); CALCIUM 9.8 MG/DL (8.5-10.1); CARBON DIOXIDE 24 MMOL/L (21-32); CHLORIDE 105 MMOL/L (98-107); CREATININE 0.6 MG/DL (0.55-1.30); POTASSIUM 3.6 MMOL/L (3.5-5.1); SODIUM 139 MMOL/L (136-145)
[2018-09-16 08:00] VITALS: BP 159/69
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
[2018-09-16] MEDS: Heparin 5000 units/ml inj SUBQ SCH ×2 (09:22→21:28)
--- NOTE | 2018-09-16 11:00 | NUR ---
NURSE NOTES: WOUND CARE NOTES:Pt presented on admission with full thickness sacral pressure injury. Base of wound gala with biofilm. Bone is palpable. (+) Epibole along borders. No odor or exudate noted. (L)2.5cm x (W)1cm x (D)1cm Periwound without erythema or induration. Both heels are dry, firm and blanchable. Tx.Plan: Cleanse wound with Saline.Apply Therahoney . Apply Cavilon Skin BArrier to Borders and periwound. Cover with Optifoam drsg. Change every 3 days and prn. Apply Cavilon Skin BArrier to Both heels. Off-load heels with Pillow. Reposition at least every 2hours or as tolerated. Off-load heels with pillow. APM/NERISSA mattress overlay.
[2018-09-16 12:00] VITALS: BP 143/72
--- NOTE | 2018-09-16 13:12 | Infectious Diseases Prog Note ---
Assessment/Plan Assessment/Plan Abx: none Assessment: Afebrile No leukocytosis -CXR: Prominent pulmonary interstitium nonspecific Pyuria (no UTI symptoms) -u/a wbc 15-20, nit +, leuk +2; ucx >100k E. aerogenes (R ancef; otherwise S) s/p Fall L hip intertrochanteric fracture -CT Pelvis: Acute intratrochanteric fracture of the left hip. Sacral decubitus ulcer posterior to the coccygeal region. Osteomyelitis is possible. Correlate clinically. Other findings as above. 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 Will continue to follow along with you. Discussed with RN. Subjective Allergies: Coded Allergies: No Known Allergies (Unverified , 09/13/18) Subjective afebrile no leukocytosis Objective Vital Signs Last 24 Hour Vital Signs Date Time Temp Pulse Resp B/P (MAP) Pulse Ox O2 Delivery O2 Flow Rate FiO2 09/16/18 09:57 Room Air 09/16/18 08:00 97.3 67 19 159/69 (99) 97 09/16/18 04:00 97.2 93 19 129/83 (98) 95 09/16/18 00:00 97.3 83 19 109/66 (80) 99 09/15/18 21:00 Room Air 09/15/18 20:00 98.4 82 19 114/64 (81) 100 09/15/18 16:00 97.8 72 18 129/64 (85) 99 Height (Feet): 6 Height (Inches): 0.00 Weight (Pounds): 120 Objective GENERAL: Calm in bed, oriented x1, in no acute distress. CARDIOVASCULAR: No murmur. LUNGS: Distant and clear. ABDOMEN: Bowel sounds positive. Nontender. Nondistended. EXTREMITIES: No cyanosis, clubbing, or edema. The bilateral legs slightly contracted. NEUROLOGIC: The patient moves all extremities slightly weak. Microbiology Date/Time Source Procedure Growth Status 09/13/18 19:20 Nasal Nares MRSA Culture - Final Staphylococcus Aureus - Mrsa Complete 09/13/18 19:00 Urine,Clean Catch Urine Culture - Final Enterobacter Aerogenes Complete 09/13/18 19:20 Rectum VRE Culture - Final NO VANCOMYCIN RESISTANT ENTEROCOCCUS ... Complete 09/13/18 19:20 Rectum - Final NO CARBAPENEM-RESISTANT ENTEROBACTERI... Complete Laboratory Tests Test 09/16/18 05:45 White Blood Count 4.8 K/UL (4.8-10.8) Red Blood Count 5.07 M/UL (4.70-6.10) Hemoglobin 11.2 G/DL (14.2-18.0) L Hematocrit 36.3 % (42.0-52.0) L Mean Corpuscular Volume 72 FL (80-99) L Mean Corpuscular Hemoglobin 22.0 PG (27.0-31.0) L Mean Corpuscular Hemoglobin Concent 30.8 G/DL (32.0-36.0) L Red Cell Distribution Width 17.7 % (11.6-14.8) H Platelet Count 275 K/UL (150-450) Mean Platelet Volume 5.2 FL (6.5-10.1) L Neutrophils (%) (Auto) 62.3 % (45.0-75.0) Lymphocytes (%) (Auto) 25.1 % (20.0-45.0) Monocytes (%) (Auto) 9.6 % (1.0-10.0) Eosinophils (%) (Auto) 2.4 % (0.0-3.0) Basophils (%) (Auto) 0.6 % (0.0-2.0) Sodium Level 139 MMOL/L (136-145) Potassium Level 3.6 MMOL/L (3.5-5.1) Chloride Level 105 MMOL/L (98-107) Carbon Dioxide Level 24 MMOL/L (21-32) Anion Gap 10 mmol/L (5-15) Blood Urea Nitrogen 10 mg/dL (7-18) Creatinine 0.6 MG/DL (0.55-1.30) Estimat Glomerular Filtration Rate > 60 mL/min (>60) Glucose Level 108 MG/DL (74-106) H Calcium Level 9.8 MG/DL (8.5-10.1) Current Medications Medications (Trade) Dose Ordered Sig/Thomas Route PRN Reason Start Time Stop Time Status Last Admin Dose Admin Acetaminophen (Tylenol) 650 mg Q4H PRN ORAL fever 09/13/18 21:30 10/13/18 21:29 Dextrose (Dextrose 50%) 25 ml Q30M PRN IV Hypoglycemia 09/13/18 21:30 10/13/18 21:29 Dextrose (Dextrose 50%) 50 ml Q30M PRN IV Hypoglycemia 09/13/18 21:30 10/13/18 21:29 Dextrose/Sodium Chloride 1,000 ml @ 50 mls/hr Q20H IV 09/13/18 21:24 10/13/18 21:23 09/15/18 13:32 Heparin Sodium (Porcine) (Heparin 5000 units/ml) 5,000 units EVERY 12 HOURS SUBQ 09/14/18 09:00 10/14/18 08:59 09/16/18 09:22 Lorazepam (Ativan 2mg/ml 1ml) 1 mg Q4H PRN IV For Anxiety 09/14/18 07:00 09/21/18 06:59 Morphine Sulfate (Morphine Sulfate) 2 mg Q4H PRN IVP For Pain 4-6 09/13/18 21:30 09/20/18 21:29 Morphine Sulfate (Morphine Sulfate) 4 mg Q4H PRN IVP For Pain 7-10 09/13/18 21:30 09/20/18 21:29 Ondansetron HCl (Zofran) 4 mg Q6H PRN IVP Nausea & Vomiting 09/13/18 21:30 10/13/18 21:29 Polyethylene Glycol (Miralax) 17 gm HSPRN PRN ORAL Constipation 09/13/18 21:30 10/13/18 21:29 Quetiapine Fumarate (SEROquel) 50 mg Q12HR ORAL 09/14/18 00:00 10/14/18 00:00 09/16/18 09:21 Zolpidem Tartrate (Ambien) 5 mg HSPRN PRN ORAL Insomnia 09/13/18 21:30 09/20/18 21:29 Armida Wills M.D. Sep 16, 2018 13:12
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
[2018-09-16] MEDS ORDERED: LORazepam 1mg tab ORAL PRN (14:00)
[2018-09-16] MEDS: D5 1/2NS 1,000 ML IV SCH (14:14)
[2018-09-16] MEDS ORDERED: Silver Nitrate Stick TOPIC SCH (15:00)
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
[2018-09-16 16:00] VITALS: BP 136/78
--- NOTE | 2018-09-16 17:05 | NUR ---
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 FALL VS: BP 159/69, P 93, T 97.3, RR 19, SpO2 99 H&H 11.2/36.3 IS:HEPARIN SUBQ SEROQUEL 50mg D5/NS x1L IV MED/SURG STATUS
--- NOTE | 2018-09-16 17:08 | NUR ---
CHALK TESTER NOTES FAXED REFERRAL TO KRISTA LLANES CALLED BACK TO FOLLOW UP BUT OFFICE IS CLOSED FOR THE DAY WILL FOLLOW UP TOMORROW.
--- NOTE | 2018-09-16 19:25 | NUR ---
HAND-OFF: Report given to ISSAC Saenz.
--- NOTE | 2018-09-16 19:30 | NUR ---
NURSE NOTES: Pt is in bed, bed is locked in lowest position, side rails x2, iv intact, no c/o pain or signs of distress, call light within reach. will continue to monitor.
[2018-09-16 20:00] VITALS: BP 121/75
[2018-09-17] VITALS: BP 138/79
[2018-09-17 04:00] VITALS: BP 110/65
--- NOTE | 2018-09-17 07:15 | NUR ---
HAND-OFF: Report given to ISSAC Valadez.
[2018-09-17 07:26] LABS: ANION GAP 11 mmol/L (5-15); BASOPHILS % (AUTO) 0.9 % (0.0-2.0); BLOOD UREA NITROGEN 14 mg/dL (7-18); CALCIUM 10.2 MG/DL (8.5-10.1); CARBON DIOXIDE 24 MMOL/L (21-32); CHLORIDE 103 MMOL/L (98-107); CREATININE 0.5 MG/DL (0.55-1.30); EOSINOPHILS % (AUTO) 1.8 % (0.0-3.0); HEMATOCRIT 39.2 % (42.0-52.0); HEMOGLOBIN 11.7 G/DL (14.2-18.0); MEAN CORPUSCULAR VOLUME 72 FL (80-99); MONOCYTES % (AUTO) 6.6 % (1.0-10.0); NEUTROPHILS % (AUTO) 74.8 % (45.0-75.0); PLATELET COUNT 296 K/UL (150-450); POTASSIUM 3.7 MMOL/L (3.5-5.1); RED BLOOD COUNT 5.42 M/UL (4.70-6.10); RED CELL DISTRIBUTION WIDTH 17.9 % (11.6-14.8); SODIUM 138 MMOL/L (136-145); WHITE BLOOD COUNT 5.2 K/UL (4.8-10.8)
[2018-09-17 08:00] VITALS: BP 137/82
[2018-09-17] MEDS: Heparin 5000 units/ml inj SUBQ SCH ×2 (08:37→20:53)
--- NOTE | 2018-09-17 10:55 | Diagnostic Imaging Report ---
Indication: Trauma, pain Technique: 2 views of the left hip, one view of the pelvis Comparison: Pelvic CT 09/13/2018 Findings: Nondisplaced left hip intertrochanteric fracture is again demonstrated. No definite associated pelvic fracture. The joint spaces are preserved Impression: Nondisplaced left hip intertrochanteric fracture, also reported on recent CT scan. No definite significant interim change.
--- NOTE | 2018-09-17 11:08 | NUR ---
NURSE NOTES: PT AXOX1, CALM, RESTING IN BED. XR OF LEFT HIP AND PELVIS COMPLETED. PT RESTING IN BED. IN NO APPARENT DISTRESS AT THIS TIME. FACIAL GRIMACING NOTED WHEN REPOSITIONING PT. PT WAS GIVEN PRN MORPHINE 4MG IVP FOR PAIN. WILL CONTINUE TO MONITOR.
--- NOTE | 2018-09-17 11:10 | Diagnostic Imaging Report ---
Indication: Reason For Exam: TRAUMA Technique: Noncontrast spiral acquisitions obtained through the orbits Multiplanar reconstructions were generated. Total dose length product 671.88 mGycm. CTDIvol(s) 28.19 mGy. Radiation dose was minimized using automated exposure control Comparison: none Findings: There is evidence of prior bilateral convexity craniotomies. No acute fractures. No worrisome sinus opacification. The optic globes and retroseptal orbits are intact. The nasal septum is midline. There is evidence of multiple prior dental extractions. There appears to be caries involving the right first maxillary premolar. No significant facial soft tissue swelling. The deep facial soft tissues appear unremarkable. No upper cervical mass or adenopathy. Impression: Evidence of prior bilateral craniotomies No definite acute process Dental disease as described The CT scanner at [facility] is accredited by the [employer] and the scans are performed using protocols designed to limit radiation exposure to as low as reasonably achievable to attain images of sufficient resolution adequate for diagnostic evaluation.
[2018-09-17 12:00] VITALS: BP 118/68
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
[2018-09-17] MEDS ORDERED: Silver Nitrate Stick TOPIC SCH (13:00)
--- NOTE | 2018-09-17 13:27 | Infectious Diseases Prog Note ---
Assessment/Plan Assessment/Plan Abx: none Assessment: Afebrile No leukocytosis -CXR: Prominent pulmonary interstitium nonspecific Pyuria (no UTI symptoms) -u/a wbc 15-20, nit +, leuk +2; ucx >100k E. aerogenes (R ancef; otherwise S) s/p Fall L hip intertrochanteric fracture -CT Pelvis: Acute intratrochanteric fracture of the left hip. Sacral decubitus ulcer posterior to the coccygeal region. Osteomyelitis is possible. Correlate clinically. Other findings as above. 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 Will continue to follow along with you. Discussed with RN. Subjective Allergies: Coded Allergies: No Known Allergies (Unverified , 09/13/18) Subjective afebrile no leukocytosis Objective Vital Signs Last 24 Hour Vital Signs Date Time Temp Pulse Resp B/P (MAP) Pulse Ox O2 Delivery O2 Flow Rate FiO2 09/17/18 12:00 97.4 95 18 118/68 (85) 95 09/17/18 09:00 Room Air 09/17/18 08:00 98.1 71 18 137/82 (100) 95 09/17/18 04:00 97.9 85 18 110/65 (80) 98 09/17/18 00:00 98.5 70 19 138/79 (98) 100 09/16/18 21:00 Room Air 09/16/18 20:00 98.0 84 18 121/75 (90) 98 09/16/18 16:00 97.7 80 20 136/78 (97) 96 Height (Feet): 6 Height (Inches): 0.00 Weight (Pounds): 120 Objective GENERAL: Calm in bed, oriented x1, in no acute distress. CARDIOVASCULAR: No murmur. LUNGS: Distant and clear. ABDOMEN: Bowel sounds positive. Nontender. Nondistended. EXTREMITIES: No cyanosis, clubbing, or edema. The bilateral legs slightly contracted. NEUROLOGIC: The patient moves all extremities slightly weak. Laboratory Tests Test 09/17/18 06:24 White Blood Count 5.2 K/UL (4.8-10.8) Red Blood Count 5.42 M/UL (4.70-6.10) Hemoglobin 11.7 G/DL (14.2-18.0) L Hematocrit 39.2 % (42.0-52.0) L Mean Corpuscular Volume 72 FL (80-99) L Mean Corpuscular Hemoglobin 21.6 PG (27.0-31.0) L Mean Corpuscular Hemoglobin Concent 30.0 G/DL (32.0-36.0) L Red Cell Distribution Width 17.9 % (11.6-14.8) H Platelet Count 296 K/UL (150-450) Mean Platelet Volume 5.4 FL (6.5-10.1) L Neutrophils (%) (Auto) 74.8 % (45.0-75.0) Lymphocytes (%) (Auto) 16.0 % (20.0-45.0) L Monocytes (%) (Auto) 6.6 % (1.0-10.0) Eosinophils (%) (Auto) 1.8 % (0.0-3.0) Basophils (%) (Auto) 0.9 % (0.0-2.0) Sodium Level 138 MMOL/L (136-145) Potassium Level 3.7 MMOL/L (3.5-5.1) Chloride Level 103 MMOL/L (98-107) Carbon Dioxide Level 24 MMOL/L (21-32) Anion Gap 11 mmol/L (5-15) Blood Urea Nitrogen 14 mg/dL (7-18) Creatinine 0.5 MG/DL (0.55-1.30) L Estimat Glomerular Filtration Rate > 60 mL/min (>60) Glucose Level 97 MG/DL (74-106) Calcium Level 10.2 MG/DL (8.5-10.1) H Current Medications Medications (Trade) Dose Ordered Sig/Thomas Route PRN Reason Start Time Stop Time Status Last Admin Dose Admin Acetaminophen (Tylenol) 650 mg Q4H PRN ORAL fever 09/13/18 21:30 10/13/18 21:29 Dextrose (Dextrose 50%) 25 ml Q30M PRN IV Hypoglycemia 09/13/18 21:30 10/13/18 21:29 Dextrose (Dextrose 50%) 50 ml Q30M PRN IV Hypoglycemia 09/13/18 21:30 10/13/18 21:29 Gentamicin Sulfate (Garamycin 0.3% Opth Soln) 1 drop EVERY 6 HOURS RIGHT EYE 09/17/18 18:00 09/24/18 17:59 Heparin Sodium (Porcine) (Heparin 5000 units/ml) 5,000 units EVERY 12 HOURS SUBQ 09/14/18 09:00 10/14/18 08:59 09/17/18 08:37 Lorazepam (Ativan) 1 mg Q4H PRN ORAL For Anxiety 09/16/18 14:00 09/23/18 13:59 Morphine Sulfate (Morphine Sulfate) 2 mg Q4H PRN IVP For Pain 4-6 09/13/18 21:30 09/20/18 21:29 Morphine Sulfate (Morphine Sulfate) 4 mg Q4H PRN IVP For Pain 7-09/13/18 21:30 09/20/18 21:29 09/17/18 08:28 Ondansetron HCl (Zofran) 4 mg Q6H PRN IVP Nausea & Vomiting 09/13/18 21:30 10/13/18 21:29 Polyethylene Glycol (Miralax) 17 gm HSPRN PRN ORAL Constipation 09/13/18 21:30 10/13/18 21:29 Quetiapine Fumarate (SEROquel) 50 mg Q12HR ORAL 09/14/18 00:00 10/14/18 00:00 09/17/18 08:23 Silver Nitrate (Silver Nitrate Applicators) 1 applic ONCE TOPIC 09/17/18 13:00 09/17/18 15:00 Zolpidem Tartrate (Ambien) 5 mg HSPRN PRN ORAL Insomnia 09/13/18 21:30 09/20/18 21:29 Armida Wills M.D. Sep 17, 2018 13:27
--- NOTE | 2018-09-17 13:30 | NUR ---
NURSE NOTES: PT TOOK OUT IV ACCESS ON RIGHT WRIST.
--- NOTE | 2018-09-17 15:12 | NUR ---
NURSE NOTES: WOUND CARE NOTES:Application of Silver Nitrite Sticks to borders of Sacral Pressure injury. Pt tolerated procedure without any discomfort .Wound packed loosely with Therahoney impregnated gauze . Moisture Barrier Paste applied periwound. Covered with Optifoam drsg. Pt positioned on L side.Mattress changed to an APM/NERISSA mattress overlay . Tx.Plan: Silver Nitrite x1 application to Borders of Sacral wound (Done) Cleanse Sacral wound with Saline.Pack loosely with Therahoney.Apply Moisture Barrier Periwound. Cover with Optifoam drsg Daily and prn. Reposition at least every 2hours or as tolerated. Off-load heels with Pillow.
--- NOTE | 2018-09-17 15:30 | NUR ---
NURSE NOTES: SACRAL WOUND CHANGED WITH WOUND CARE NURSE.
[2018-09-17 16:00] VITALS: BP 125/89
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
--- NOTE | 2018-09-17 16:31 | NUR ---
NURSE NOTES: RN SPOKE TO CHRISTIANA LEVINE, REGARDING DISCHARGE ORDER. ABNER WORKING ON PLACEMENT FOR PT.
--- NOTE | 2018-09-17 16:50 | NUR ---
NURSE NOTES: PT TOOK OUT IV ACCESS FOR SECOND TIME.
--- NOTE | 2018-09-17 16:57 | NUR ---
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 CLOSED LEFT HIP FRACTURE . FALL VS: BP 143/72, P 78, T 97.8, RR 20, SpO2 97 H&H 11.7/36.2 IS:MORPHINE SULFATE 4mg IVP SEROQUEL 50mg HEPARIN SUBQ MED/SURG STATUS
[2018-09-17] MEDS: Gentamicin 0.3% Opth Soln 5ml RIGHT EYE SCH (17:17)
[2018-09-17 20:00] VITALS: BP 112/77
--- NOTE | 2018-09-17 20:00 | NUR ---
NURSE NOTES: RECEIVED PT FROM ISSAC SAWANT. PT IS AWAKE, AAO X1, ON ROOM AIR, NO ACUTE DISTRESS NOTED. DRESSINGS ON SACRAL IS INTACT AND DRY. OPTIFOAM NOTED ON BILATERAL HEELS. NO IV NOTED. CALLED [facility] [employer] FOR P200 MATRESS. WILL FOLLOW UP. BED IS LOCKED AT THE LOWEST POSITION, BED ALARMS ACTIVE, SIDE RAILS UP X3, AND CALL LIGHT IS WITHIN REACH. WILL CONTINUE TO MONITOR.
--- NOTE | 2018-09-17 20:03 | NUR ---
HAND-OFF: Report given to Marleny SANDERS RN.
[2018-09-18] VITALS: BP 114/66
[2018-09-18] MEDS: Gentamicin 0.3% Opth Soln 5ml RIGHT EYE SCH ×4 (01:15→17:42)
[2018-09-18 04:00] VITALS: BP 107/74
[2018-09-18 07:07] LABS: ANION GAP 8 mmol/L (5-15); BASOPHILS % (AUTO) 0.6 % (0.0-2.0); BLOOD UREA NITROGEN 15 mg/dL (7-18); CALCIUM 10.2 MG/DL (8.5-10.1); CARBON DIOXIDE 29 MMOL/L (21-32); CHLORIDE 103 MMOL/L (98-107); CREATININE 0.6 MG/DL (0.55-1.30); EOSINOPHILS % (AUTO) 2.7 % (0.0-3.0); HEMATOCRIT 36.1 % (42.0-52.0); LYMPHOCYTES % (AUTO) 24.2 % (20.0-45.0); MEAN CORPUSCULAR VOLUME 72 FL (80-99); MONOCYTES % (AUTO) 7.7 % (1.0-10.0); NEUTROPHILS % (AUTO) 64.9 % (45.0-75.0); PLATELET COUNT 287 K/UL (150-450); POTASSIUM 4.1 MMOL/L (3.5-5.1); RED BLOOD COUNT 5.03 M/UL (4.70-6.10); SODIUM 140 MMOL/L (136-145); WHITE BLOOD COUNT 4.3 K/UL (4.8-10.8)
--- NOTE | 2018-09-18 07:27 | NUR ---
HAND-OFF: Report given to ISSAC FLORES.
[2018-09-18 08:00] VITALS: BP 110/77
--- NOTE | 2018-09-18 08:01 | NUR ---
NURSE NOTES: Received report from Marie, RN. Pt in bed, asleep, respirations regular and unlabored, bed in lowest position, call light within reach, no IV access for pt.
[2018-09-18] MEDS: Heparin 5000 units/ml inj SUBQ SCH ×2 (08:37→21:41)
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
--- NOTE | 2018-09-18 11:33 | NUR ---
*-* INSURANCE *-* ALL CLINICALS AND REVIEWS HAVE BEEN FAXED TO: MICHELE/MEL S/W JAMES..MICHELE WILL HANDLE THIS ADMISSION...NO IPA PLEASE FAX THE REVIEW/CLINICAL P- [phone] F- [phone]....REVIEW/CLINICAL
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
[2018-09-18 12:00] VITALS: BP 95/59
--- NOTE | 2018-09-18 13:51 | Infectious Diseases Prog Note ---
Assessment/Plan Assessment/Plan Abx: none Assessment: Afebrile No leukocytosis -CXR: Prominent pulmonary interstitium nonspecific Pyuria (no UTI symptoms) -u/a wbc 15-20, nit +, leuk +2; ucx >100k E. aerogenes (R ancef; otherwise S) s/p Fall L hip intertrochanteric fracture -CT Pelvis: Acute intratrochanteric fracture of the left hip. Sacral decubitus ulcer posterior to the coccygeal region. Osteomyelitis is possible. Correlate clinically. Other findings as above. 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 Will continue to follow along with you. Discussed with RN. Subjective Allergies: Coded Allergies: No Known Allergies (Unverified , 09/13/18) Subjective afebrile no leukocytosis Objective Vital Signs Last 24 Hour Vital Signs Date Time Temp Pulse Resp B/P (MAP) Pulse Ox O2 Delivery O2 Flow Rate FiO2 09/18/18 12:00 98.3 95 18 95/59 (71) 98 09/18/18 09:00 Room Air 09/18/18 08:00 98.3 95 18 110/77 (88) 98 09/18/18 04:00 98.1 95 18 107/74 (85) 97 09/18/18 00:00 98.6 99 18 114/66 (82) 99 09/17/18 21:00 Room Air 09/17/18 20:00 97.7 100 18 112/77 (89) 99 09/17/18 16:00 98.3 102 18 125/89 (101) 97 Height (Feet): 6 Height (Inches): 0.00 Weight (Pounds): 121 Objective GENERAL: Calm in bed, oriented x1, in no acute distress. CARDIOVASCULAR: No murmur. LUNGS: Distant and clear. ABDOMEN: Bowel sounds positive. Nontender. Nondistended. EXTREMITIES: No cyanosis, clubbing, or edema. The bilateral legs slightly contracted. NEUROLOGIC: The patient moves all extremities slightly weak. Laboratory Tests Test 09/18/18 05:20 White Blood Count 4.3 K/UL (4.8-10.8) L Red Blood Count 5.03 M/UL (4.70-6.10) Hemoglobin 11.0 G/DL (14.2-18.0) L Hematocrit 36.1 % (42.0-52.0) L Mean Corpuscular Volume 72 FL (80-99) L Mean Corpuscular Hemoglobin 21.8 PG (27.0-31.0) L Mean Corpuscular Hemoglobin Concent 30.4 G/DL (32.0-36.0) L Red Cell Distribution Width 18.0 % (11.6-14.8) H Platelet Count 287 K/UL (150-450) Mean Platelet Volume 4.9 FL (6.5-10.1) L Neutrophils (%) (Auto) 64.9 % (45.0-75.0) Lymphocytes (%) (Auto) 24.2 % (20.0-45.0) Monocytes (%) (Auto) 7.7 % (1.0-10.0) Eosinophils (%) (Auto) 2.7 % (0.0-3.0) Basophils (%) (Auto) 0.6 % (0.0-2.0) Sodium Level 140 MMOL/L (136-145) Potassium Level 4.1 MMOL/L (3.5-5.1) Chloride Level 103 MMOL/L (98-107) Carbon Dioxide Level 29 MMOL/L (21-32) Anion Gap 8 mmol/L (5-15) Blood Urea Nitrogen 15 mg/dL (7-18) Creatinine 0.6 MG/DL (0.55-1.30) Estimat Glomerular Filtration Rate > 60 mL/min (>60) Glucose Level 119 MG/DL (74-106) H Calcium Level 10.2 MG/DL (8.5-10.1) H Current Medications Medications (Trade) Dose Ordered Sig/Thomas Route PRN Reason Start Time Stop Time Status Last Admin Dose Admin Acetaminophen (Tylenol) 650 mg Q4H PRN ORAL fever 09/13/18 21:30 10/13/18 21:29 Dextrose (Dextrose 50%) 25 ml Q30M PRN IV Hypoglycemia 09/13/18 21:30 10/13/18 21:29 Dextrose (Dextrose 50%) 50 ml Q30M PRN IV Hypoglycemia 09/13/18 21:30 10/13/18 21:29 Gentamicin Sulfate (Garamycin 0.3% Opth Soln) 1 drop EVERY 6 HOURS RIGHT EYE 09/17/18 18:00 09/24/18 17:59 09/18/18 11:27 Heparin Sodium (Porcine) (Heparin 5000 units/ml) 5,000 units EVERY 12 HOURS SUBQ 09/14/18 09:00 10/14/18 08:59 09/18/18 08:37 Lorazepam (Ativan) 1 mg Q4H PRN ORAL For Anxiety 09/16/18 14:00 09/23/18 13:59 Morphine Sulfate (Morphine Sulfate) 2 mg Q4H PRN IVP For Pain 4-6 09/13/18 21:30 09/20/18 21:29 Morphine Sulfate (Morphine Sulfate) 4 mg Q4H PRN IVP For Pain 7-09/13/18 21:30 09/20/18 21:29 09/17/18 08:28 Ondansetron HCl (Zofran) 4 mg Q6H PRN IVP Nausea & Vomiting 09/13/18 21:30 10/13/18 21:29 Polyethylene Glycol (Miralax) 17 gm HSPRN PRN ORAL Constipation 09/13/18 21:30 10/13/18 21:29 09/18/18 11:27 Quetiapine Fumarate (SEROquel) 50 mg Q12HR ORAL 09/14/18 00:00 10/14/18 00:00 09/18/18 08:36 Zolpidem Tartrate (Ambien) 5 mg HSPRN PRN ORAL Insomnia 09/13/18 21:30 09/20/18 21:29 Armida Wills M.D. Sep 18, 2018 13:51
[2018-09-18 16:00] VITALS: BP 99/62
--- NOTE | 2018-09-18 16:06 | Surgery Progress Note ---
Surgery Progress Note Subjective Symptoms: improved Objective Last 24 Hour Vital Signs Date Time Temp Pulse Resp B/P (MAP) Pulse Ox O2 Delivery O2 Flow Rate FiO2 09/18/18 12:00 98.3 95 18 95/59 (71) 98 09/18/18 09:00 Room Air 09/18/18 08:00 98.3 95 18 110/77 (88) 98 09/18/18 04:00 98.1 95 18 107/74 (85) 97 09/18/18 00:00 98.6 99 18 114/66 (82) 99 09/17/18 21:00 Room Air 09/17/18 20:00 97.7 100 18 112/77 (89) 99 I&O Intake and Output 09/17/18 09/18/18 19:00 07:00 Intake Total 360 ml Balance 360 ml Intake Oral 360 ml # Voids 3 1 Dressing: saturated Wound: clean Cardiovascular: RSR Respiratory: clear Abdomen: soft, present bowel sounds, non-distended Extremities: no tenderness, no cyanosis Laboratory Tests Test 09/18/18 05:20 White Blood Count 4.3 K/UL (4.8-10.8) L Red Blood Count 5.03 M/UL (4.70-6.10) Hemoglobin 11.0 G/DL (14.2-18.0) L Hematocrit 36.1 % (42.0-52.0) L Mean Corpuscular Volume 72 FL (80-99) L Mean Corpuscular Hemoglobin 21.8 PG (27.0-31.0) L Mean Corpuscular Hemoglobin Concent 30.4 G/DL (32.0-36.0) L Red Cell Distribution Width 18.0 % (11.6-14.8) H Platelet Count 287 K/UL (150-450) Mean Platelet Volume 4.9 FL (6.5-10.1) L Neutrophils (%) (Auto) 64.9 % (45.0-75.0) Lymphocytes (%) (Auto) 24.2 % (20.0-45.0) Monocytes (%) (Auto) 7.7 % (1.0-10.0) Eosinophils (%) (Auto) 2.7 % (0.0-3.0) Basophils (%) (Auto) 0.6 % (0.0-2.0) Sodium Level 140 MMOL/L (136-145) Potassium Level 4.1 MMOL/L (3.5-5.1) Chloride Level 103 MMOL/L (98-107) Carbon Dioxide Level 29 MMOL/L (21-32) Anion Gap 8 mmol/L (5-15) Blood Urea Nitrogen 15 mg/dL (7-18) Creatinine 0.6 MG/DL (0.55-1.30) Estimat Glomerular Filtration Rate > 60 mL/min (>60) Glucose Level 119 MG/DL (74-106) H Calcium Level 10.2 MG/DL (8.5-10.1) H Plan Problems: (1) Multiple injuries due to trauma Assessment & Plan: Left hip nondisplaced intertrochanteric fracture with the patient with traumatic brain injury as well as nonambulatory status with a decubitus ulcer close to the area of the hip. appreciate ortho input plan for on operative management at this time DAILY ESTIMATED NEEDS: Needs based on Wound healing, underweight/ 54.4kg 30-35 kcals/kg 4196-4074 total kcals 1.5-2.0 g protein/kg 81-109 g total protein 25-30 mL/kg 7354-6616 total fluid mLs NUTRITION DIAGNOSIS: Increased kcal/prot needs R/T wound healing, underweight status as evidenced by pt admitted w/ sacral stage 4 wound, pt at 67% IBW w/ low BMI of 16.3. CURRENT DIET:low salt PO DIET RECOMMENDATIONS: Liberalized REGULAR diet/ texture per COMMISSIONING EDITOR + Ensure Enlive TID w/ meals ADDITIONAL RECOMMENDATIONS: * Recalibrated bedscale wt for accurate CBW -> weekly wt monitoring given underweight status * Wound healing: add MVI w/ min 1 tab QD : add Vit C 500mg BID : Ren 1pkt BID w/ diet order : No need for ZnSO4 as pt was receiving it FLUE DUST LABORER * COMMISSIONING EDITOR evaluation for appropriate texture * Pt on Megace 400mg QD FLUE DUST LABORER: consider re-adding it to med list * Monitor lytes, replete as needed (low K) (2) Subdural hematoma (3) Sacral decubitus ulcer, stage IV Assessment & Plan: Patient presented from custodial with stage 4 sacral decubitus ulcer with palpable bone wound overall fairly clean with some biofilm and minimal sloth seems to have been receiving care and has had prior debridement likely patient spends majority of time in bed during recovery will need close monitoring and care to ensure improving and not deterioration nutritional optimization Pt presented on admission with full thickness sacral pressure injury. Base of wound gala with biofilm. Bone is palpable. (+) Epibole along borders. No odor or exudate noted. (L)2.5cm x (W)1cm x (D)1cm Periwound without erythema or induration. Both heels are dry, firm and blanchable. Tx.Plan: Cleanse wound with Saline.Apply Therahoney . Apply Cavilon Skin Barrier to Borders and periwound. Cover with Optifoam drsg. Change every 3 days and prn. Apply Cavilon Skin Barrier to Both heels. Off-load heels with Pillow. Reposition at least every 2hours or as tolerated. Off-load heels with pillow. APM/NERISSA mattress overlay. (4) Hypertension (5) Traumatic brain injury Mario Moses Sep 18, 2018 16:06
--- NOTE | 2018-09-18 17:03 | NUR ---
LOGISTICS CLERKEDUCATION TRAINER SI:MULTIPLE INJURIES . CLOSED LEFT HIP FRACTURE . FALL VS: BP 95/59, P 101, T 97.9, RR 18, SpO2 97 WBC 4.3, H&H 11.0/36.1 IS:MORPHINE SULFATE 4mg IVP SEROQUEL 50mg HEPARIN SUBQ MED/SURG STATUS
--- NOTE | 2018-09-18 19:31 | NUR ---
HAND-OFF: Report given to ISSAC Salazar.
--- NOTE | 2018-09-18 19:57 | NUR ---
NURSE NOTES: RECEIVED PT FROM ISSAC FLORES. PT IS ASLEEP, ON ROOM AIR, NO ACUTE DISTRESS NOTED. DRESSINGS ON SACRAL IS INTACT AND DRY, LAST DRESSING CHANGE ON 09/18 AM SHIFT. OPTIFOAM NOTED ON BILATERAL HEELS, INTACT. BED IS LOCKED AT THE LOWEST POSITION, BED ALARMS ACTIVE, SIDE RAILS UP X3, AND CALL LIGHT IS WITHIN REACH. WILL CONTINUE TO MONITOR.
[2018-09-18 20:00] VITALS: BP 101/71
[2018-09-19] VITALS: BP 115/68
[2018-09-19] MEDS: Gentamicin 0.3% Opth Soln 5ml RIGHT EYE SCH ×3 (00:55→12:24)
--- NOTE | 2018-09-19 01:00 | NUR ---
NURSE NOTES: CHANGED DRESSINGS ON SACRAL
--- NOTE | 2018-09-19 02:30 | NUR ---
HAND-OFF: Report given to ISSAC Leger.
[2018-09-19 04:00] VITALS: BP 115/62
--- NOTE | 2018-09-19 06:27 | NUR ---
NURSE NOTES: RESTED WELL, NO SIGNIFICANT CHANGE OF CONDITION NOTED. SAFETY MAINTAINED. NAD.
[2018-09-19 07:21] LABS: BASOPHILS % (AUTO) 1.1 % (0.0-2.0); EOSINOPHILS % (AUTO) 2.5 % (0.0-3.0); HEMATOCRIT 38.3 % (42.0-52.0); HEMOGLOBIN 11.7 G/DL (14.2-18.0); MEAN CORPUSCULAR VOLUME 72 FL (80-99); MONOCYTES % (AUTO) 7.6 % (1.0-10.0); NEUTROPHILS % (AUTO) 63.9 % (45.0-75.0); PLATELET COUNT 324 K/UL (150-450); RED BLOOD COUNT 5.28 M/UL (4.70-6.10); RED CELL DISTRIBUTION WIDTH 17.8 % (11.6-14.8); WHITE BLOOD COUNT 5.5 K/UL (4.8-10.8)
--- NOTE | 2018-09-19 07:30 | NUR ---
HAND-OFF: Report given to ISSAC PEACOCK.
[2018-09-19 07:50] LABS: ANION GAP 9 mmol/L (5-15); BLOOD UREA NITROGEN 20 mg/dL (7-18); CALCIUM 10.2 MG/DL (8.5-10.1); CARBON DIOXIDE 26 MMOL/L (21-32); CHLORIDE 104 MMOL/L (98-107); CREATININE 0.7 MG/DL (0.55-1.30); POTASSIUM 4.1 MMOL/L (3.5-5.1); SODIUM 139 MMOL/L (136-145)
--- NOTE | 2018-09-19 07:54 | NUR ---
NURSE NOTES: pt resting in bed, A/O x 1, denies pain. no SOB noted. no IV access, aware. pts on speciality bed, bed alarm on, call light within reach, will continue to monitor.
[2018-09-19] MEDS: Heparin 5000 units/ml inj SUBQ SCH (08:17)
[2018-09-19 09:00] VITALS: BP 110/76
--- NOTE | 2018-09-19 10:45 | Infectious Diseases Prog Note ---
Assessment/Plan Assessment/Plan Abx: none Assessment: Afebrile No leukocytosis -CXR: Prominent pulmonary interstitium nonspecific Pyuria (no UTI symptoms) -u/a wbc 15-20, nit +, leuk +2; ucx >100k E. aerogenes (R ancef; otherwise S) s/p Fall L hip intertrochanteric fracture -CT Pelvis: Acute intratrochanteric fracture of the left hip. Sacral decubitus ulcer posterior to the coccygeal region. Osteomyelitis is possible. Correlate clinically. Other findings as above. 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 Will continue to follow along with you. Discussed with RN. Subjective Allergies: Coded Allergies: No Known Allergies (Unverified , 09/13/18) Subjective afebrile no leukocytosis Objective Vital Signs Last 24 Hour Vital Signs Date Time Temp Pulse Resp B/P (MAP) Pulse Ox O2 Delivery O2 Flow Rate FiO2 09/19/18 09:00 Room Air 09/19/18 09:00 98.3 93 18 110/76 (87) 97 09/19/18 04:00 98.8 90 18 115/62 (79) 98 09/19/18 00:00 98.0 99 18 115/68 (84) 98 09/18/18 21:00 Room Air 09/18/18 20:00 98.2 119 18 101/71 (81) 98 09/18/18 16:00 97.9 101 18 99/62 (74) 97 09/18/18 12:00 98.3 95 18 95/59 (71) 98 Height (Feet): 6 Height (Inches): 0.00 Weight (Pounds): 121 Objective GENERAL: Calm in bed, oriented x1, in no acute distress. CARDIOVASCULAR: No murmur. LUNGS: Distant and clear. ABDOMEN: Bowel sounds positive. Nontender. Nondistended. EXTREMITIES: No cyanosis, clubbing, or edema. The bilateral legs slightly contracted. NEUROLOGIC: The patient moves all extremities slightly weak. Laboratory Tests Test 09/19/18 06:17 White Blood Count 5.5 K/UL (4.8-10.8) Red Blood Count 5.28 M/UL (4.70-6.10) Hemoglobin 11.7 G/DL (14.2-18.0) L Hematocrit 38.3 % (42.0-52.0) L Mean Corpuscular Volume 72 FL (80-99) L Mean Corpuscular Hemoglobin 22.1 PG (27.0-31.0) L Mean Corpuscular Hemoglobin Concent 30.5 G/DL (32.0-36.0) L Red Cell Distribution Width 17.8 % (11.6-14.8) H Platelet Count 324 K/UL (150-450) Mean Platelet Volume 5.2 FL (6.5-10.1) L Neutrophils (%) (Auto) 63.9 % (45.0-75.0) Lymphocytes (%) (Auto) 25.0 % (20.0-45.0) Monocytes (%) (Auto) 7.6 % (1.0-10.0) Eosinophils (%) (Auto) 2.5 % (0.0-3.0) Basophils (%) (Auto) 1.1 % (0.0-2.0) Sodium Level 139 MMOL/L (136-145) Potassium Level 4.1 MMOL/L (3.5-5.1) Chloride Level 104 MMOL/L (98-107) Carbon Dioxide Level 26 MMOL/L (21-32) Anion Gap 9 mmol/L (5-15) Blood Urea Nitrogen 20 mg/dL (7-18) H Creatinine 0.7 MG/DL (0.55-1.30) Estimat Glomerular Filtration Rate > 60 mL/min (>60) Glucose Level 104 MG/DL (74-106) Calcium Level 10.2 MG/DL (8.5-10.1) H Current Medications Medications (Trade) Dose Ordered Sig/Thomas Route PRN Reason Start Time Stop Time Status Last Admin Dose Admin Acetaminophen (Tylenol) 650 mg Q4H PRN ORAL fever 09/13/18 21:30 10/13/18 21:29 Dextrose (Dextrose 50%) 25 ml Q30M PRN IV Hypoglycemia 09/13/18 21:30 10/13/18 21:29 Dextrose (Dextrose 50%) 50 ml Q30M PRN IV Hypoglycemia 09/13/18 21:30 10/13/18 21:29 Gentamicin Sulfate (Garamycin 0.3% Opth Soln) 1 drop EVERY 6 HOURS RIGHT EYE 09/17/18 18:00 09/24/18 17:59 09/19/18 05:57 Heparin Sodium (Porcine) (Heparin 5000 units/ml) 5,000 units EVERY 12 HOURS SUBQ 09/14/18 09:00 10/14/18 08:59 09/19/18 08:17 Lorazepam (Ativan) 1 mg Q4H PRN ORAL For Anxiety 09/16/18 14:00 09/23/18 13:59 Morphine Sulfate (Morphine Sulfate) 2 mg Q4H PRN IVP For Pain 4-6 09/13/18 21:30 09/20/18 21:29 Morphine Sulfate (Morphine Sulfate) 4 mg Q4H PRN IVP For Pain 7-09/13/18 21:30 09/20/18 21:29 09/17/18 08:28 Ondansetron HCl (Zofran) 4 mg Q6H PRN IVP Nausea & Vomiting 09/13/18 21:30 10/13/18 21:29 Polyethylene Glycol (Miralax) 17 gm HSPRN PRN ORAL Constipation 09/13/18 21:30 10/13/18 21:29 09/18/18 11:27 Quetiapine Fumarate (SEROquel) 50 mg Q12HR ORAL 09/14/18 00:00 10/14/18 00:00 09/19/18 08:16 Zolpidem Tartrate (Ambien) 5 mg HSPRN PRN ORAL Insomnia 09/13/18 21:30 09/20/18 21:29 Armida Wills M.D. Sep 19, 2018 10:45
--- NOTE | 2018-09-19 11:35 | NUR ---
*-* INSURANCE *-*. UPDATED CLINICALS AND REVIEWS HAVE BEEN FAXED TO: MICHELE/MEL S/W JAMES..MICHELE WILL HANDLE THIS ADMISSION...NO IPA PLEASE FAX THE REVIEW/CLINICAL P- [phone] F- [phone]....REVIEW/CLINICAL
--- NOTE | 2018-09-19 11:44 | Pulmonology Progress Note ---
Assessment/Plan Problems: (1) Traumatic brain injury (2) Conjunctivitis (3) Subdural hematoma (4) Hypertension (5) Multiple injuries due to trauma (6) Closed left hip fracture (7) Sacral decubitus ulcer, stage IV Assessment/Plan all reviewed CT head /orbit reviewed, just old craniotomy, no acute process in orbits abx eye drops for conjuvitis. doing better Subjective ROS Limited/Unobtainable: No Constitutional: Reports: no symptoms HEENT: Repors: no symptoms Allergies: Coded Allergies: No Known Allergies (Unverified , 09/13/18) Objective Last 24 Hour Vital Signs Date Time Temp Pulse Resp B/P (MAP) Pulse Ox O2 Delivery O2 Flow Rate FiO2 09/19/18 09:00 Room Air 09/19/18 09:00 98.3 93 18 110/76 (87) 97 09/19/18 04:00 98.8 90 18 115/62 (79) 98 09/19/18 00:00 98.0 99 18 115/68 (84) 98 09/18/18 21:00 Room Air 09/18/18 20:00 98.2 119 18 101/71 (81) 98 09/18/18 16:00 97.9 101 18 99/62 (74) 97 09/18/18 12:00 98.3 95 18 95/59 (71) 98 Intake and Output 09/18/18 09/19/18 19:00 07:00 Intake Total 860 ml 120 ml Balance 860 ml 120 ml Intake Oral 860 ml 120 ml # Voids 6 1 General Appearance: WD/WN HEENT: normocephalic, atraumatic Respiratory/Chest: chest wall non-tender, lungs clear Cardiovascular: normal peripheral pulses, regular rhythm Abdomen: normal bowel sounds Genitourinary: normal external genitalia Skin: no rash Laboratory Tests 09/19/18 06:17: White Blood Count 5.5, Red Blood Count 5.28, Hemoglobin 11.7L, Hematocrit 38.3L , Mean Corpuscular Volume 72L, Mean Corpuscular Hemoglobin 22.1L, Mean Corpuscular Hemoglobin Concent 30.5L, Red Cell Distribution Width 17.8H, Platelet Count 324, Mean Platelet Volume 5.2L, Neutrophils (%) (Auto) 63.9, Lymphocytes (%) (Auto) 25.0, Monocytes (%) (Auto) 7.6, Eosinophils (%) (Auto) 2.5, Basophils (%) (Auto) 1.1, Sodium Level 139, Potassium Level 4.1, Chloride Level 104, Carbon Dioxide Level 26, Anion Gap 9, Blood Urea Nitrogen 20H, Creatinine 0.7, Estimat Glomerular Filtration Rate > 60, Glucose Level 104, Calcium Level 10.2H Current Medications Medications (Trade) Dose Ordered Sig/Thomas Route PRN Reason Start Time Stop Time Status Last Admin Dose Admin Acetaminophen (Tylenol) 650 mg Q4H PRN ORAL fever 09/13/18 21:30 10/13/18 21:29 Dextrose (Dextrose 50%) 25 ml Q30M PRN IV Hypoglycemia 09/13/18 21:30 10/13/18 21:29 Dextrose (Dextrose 50%) 50 ml Q30M PRN IV Hypoglycemia 09/13/18 21:30 10/13/18 21:29 Gentamicin Sulfate (Garamycin 0.3% Opt Soln) 1 drop EVERY 6 HOURS RIGHT EYE 09/17/18 18:00 09/24/18 17:59 09/19/18 05:57 Heparin Sodium (Porcine) (Heparin 5000 units/ml) 5,000 units EVERY 12 HOURS SUBQ 09/14/18 09:00 10/14/18 08:59 09/19/18 08:17 Lorazepam (Ativan) 1 mg Q4H PRN ORAL For Anxiety 09/16/18 14:00 09/23/18 13:59 Morphine Sulfate (Morphine Sulfate) 2 mg Q4H PRN IVP For Pain 4-6 09/13/18 21:30 09/20/18 21:29 Morphine Sulfate (Morphine Sulfate) 4 mg Q4H PRN IVP For Pain 7-10 09/13/18 21:30 09/20/18 21:29 09/17/18 08:28 Ondansetron HCl (Zofran) 4 mg Q6H PRN IVP Nausea & Vomiting 09/13/18 21:30 10/13/18 21:29 Polyethylene Glycol (Miralax) 17 gm HSPRN PRN ORAL Constipation 09/13/18 21:30 10/13/18 21:29 09/18/18 11:27 Quetiapine Fumarate (SEROquel) 50 mg Q12HR ORAL 09/14/18 00:00 10/14/18 00:00 09/19/18 08:16 Zolpidem Tartrate (Ambien) 5 mg HSPRN PRN ORAL Insomnia 09/13/18 21:30 09/20/18 21:29 Reji Llanos MD Sep 19, 2018 11:44
[2018-09-19 12:00] VITALS: BP 89/57
--- NOTE | 2018-09-19 12:49 | Surgery Progress Note ---
Surgery Progress Note Subjective Additional Comments silver sticks applied doing well. comfortable Objective Last 24 Hour Vital Signs Date Time Temp Pulse Resp B/P (MAP) Pulse Ox O2 Delivery O2 Flow Rate FiO2 09/19/18 12:00 98.2 81 18 89/57 (68) 97 09/19/18 09:00 Room Air 09/19/18 09:00 98.3 93 18 110/76 (87) 97 09/19/18 04:00 98.8 90 18 115/62 (79) 98 09/19/18 00:00 98.0 99 18 115/68 (84) 98 09/18/18 21:00 Room Air 09/18/18 20:00 98.2 119 18 101/71 (81) 98 09/18/18 16:00 97.9 101 18 99/62 (74) 97 I&O Intake and Output 09/18/18 09/19/18 19:00 07:00 Intake Total 860 ml 120 ml Balance 860 ml 120 ml Intake Oral 860 ml 120 ml # Voids 6 1 Dressing: saturated Wound: clean Cardiovascular: RSR Respiratory: clear Abdomen: soft, present bowel sounds Extremities: no cyanosis Laboratory Tests Test 09/19/18 06:17 White Blood Count 5.5 K/UL (4.8-10.8) Red Blood Count 5.28 M/UL (4.70-6.10) Hemoglobin 11.7 G/DL (14.2-18.0) L Hematocrit 38.3 % (42.0-52.0) L Mean Corpuscular Volume 72 FL (80-99) L Mean Corpuscular Hemoglobin 22.1 PG (27.0-31.0) L Mean Corpuscular Hemoglobin Concent 30.5 G/DL (32.0-36.0) L Red Cell Distribution Width 17.8 % (11.6-14.8) H Platelet Count 324 K/UL (150-450) Mean Platelet Volume 5.2 FL (6.5-10.1) L Neutrophils (%) (Auto) 63.9 % (45.0-75.0) Lymphocytes (%) (Auto) 25.0 % (20.0-45.0) Monocytes (%) (Auto) 7.6 % (1.0-10.0) Eosinophils (%) (Auto) 2.5 % (0.0-3.0) Basophils (%) (Auto) 1.1 % (0.0-2.0) Sodium Level 139 MMOL/L (136-145) Potassium Level 4.1 MMOL/L (3.5-5.1) Chloride Level 104 MMOL/L (98-107) Carbon Dioxide Level 26 MMOL/L (21-32) Anion Gap 9 mmol/L (5-15) Blood Urea Nitrogen 20 mg/dL (7-18) H Creatinine 0.7 MG/DL (0.55-1.30) Estimat Glomerular Filtration Rate > 60 mL/min (>60) Glucose Level 104 MG/DL (74-106) Calcium Level 10.2 MG/DL (8.5-10.1) H Plan Problems: (1) Multiple injuries due to trauma Assessment & Plan: Left hip nondisplaced intertrochanteric fracture with the patient with traumatic brain injury as well as nonambulatory status with a decubitus ulcer close to the area of the hip. appreciate ortho input plan for on operative management at this time DAILY ESTIMATED NEEDS: Needs based on Wound healing, underweight/ 54.4kg 30-35 kcals/kg 9452-1387 total kcals 1.5-2.0 g protein/kg 81-109 g total protein 25-30 mL/kg 1601-9642 total fluid mLs NUTRITION DIAGNOSIS: Increased kcal/prot needs R/T wound healing, underweight status as evidenced by pt admitted w/ sacral stage 4 wound, pt at 67% IBW w/ low BMI of 16.3. CURRENT DIET:low salt PO DIET RECOMMENDATIONS: Liberalized REGULAR diet/ texture per MICROBIOLOGY INSTRUCTOR + Ensure Enlive TID w/ meals ADDITIONAL RECOMMENDATIONS: * Recalibrated bedscale wt for accurate CBW -> weekly wt monitoring given underweight status * Wound healing: add MVI w/ min 1 tab QD : add Vit C 500mg BID : Ren 1pkt BID w/ diet order : No need for ZnSO4 as pt was receiving it COMMUNITY ENGAGEMENT REPRESENTATIVE * MICROBIOLOGY INSTRUCTOR evaluation for appropriate texture * Pt on Megace 400mg QD COMMUNITY ENGAGEMENT REPRESENTATIVE: consider re-adding it to med list * Monitor lytes, replete as needed (low K) (2) Subdural hematoma (3) Sacral decubitus ulcer, stage IV Assessment & Plan: Patient presented from [facility] with stage 4 sacral decubitus ulcer with palpable bone wound overall fairly clean with some biofilm and minimal sloth seems to have been receiving care and has had prior debridement likely patient spends majority of time in bed during recovery will need close monitoring and care to ensure improving and not deterioration nutritional optimization Pt presented on admission with full thickness sacral pressure injury. Base of wound gala with biofilm. Bone is palpable. (+) Epibole along borders. No odor or exudate noted. (L)2.5cm x (W)1cm x (D)1cm Periwound without erythema or induration. Both heels are dry, firm and blanchable. Application of Silver Nitrite Sticks to borders of Sacral Pressure injury. Pt tolerated procedure without any discomfort .Wound packed loosely with Therahoney impregnated gauze . Moisture Barrier Paste applied periwound. Covered with Optifoam drsg. Pt positioned on L side.Mattress changed to an APM/ NERISSA mattress overlay . Tx.Plan: Cleanse wound with Saline.Apply Therahoney . Apply Cavilon Skin Barrier to Borders and periwound. Cover with Optifoam drsg. Change every 3 days and prn. Apply Cavilon Skin Barrier to Both heels. Off-load heels with Pillow. Reposition at least every 2hours or as tolerated. Off-load heels with pillow. APM/NERISSA mattress overlay. (4) Hypertension (5) Traumatic brain injury Mario Moses Sep 19, 2018 12:49
--- NOTE | 2018-09-19 13:48 | NUR ---
NURSE NOTES: Received order to DC pt. pt awake, A/O x1, confused. Denies pain. no SOB noted. Dressing changed, picture taken per order. tolerating diet, no n/V. incontinent B/B, changed x 1, no BM. MRSA nares colonized per MD. turned and repositioned q2hrs. waiting for transportation. family notified/Pilar , no belongings with pt, no home medication. Addendum: 09/19/18 at 1408 by Terri Aguila RN Pt has no IV access, MD aware. report given to Izzy DAVENPORT.
--- NOTE | 2018-09-19 14:45 | NUR ---
DISCHARGE PLANNED PT WILL DC TO [facility] ROOM [facility] T [phone] FOR NURSE TO NURSE REPORT [facility] WILL [facility] AT 1445 Addendum: 09/19/18 at 1504 by Catie Alicea LVN [facility] IS AT 0776
--- NOTE | 2018-09-19 14:50 | General Progress Note ---
Assessment/Plan Status: stable, progressing Assessment/Plan: (1) UTI (urinary tract infection) ICD Codes: N39.0 - Urinary tract infection, site not specified SNOMED: 86626200 --> currently is off abx (2) Confusion ICD Codes: R41.0 - Disorientation, unspecified SNOMED: 428181745 (3) Closed left hip fracture ICD Codes: S72.002A - Fracture of unspecified part of neck of left femur, initial encounter for closed fracture SNOMED: 799437558 (4) Anemia ICD Codes: D64.9 - Anemia, unspecified SNOMED: 600944526 (5) Multiple injuries due to trauma ICD Codes: T07.XXXA - Unspecified multiple injuries, initial encounter SNOMED: 321986462 (6) Hypertension ICD Codes: I10 - Essential (primary) hypertension SNOMED: 63174010 (7) stage IV pressure ulceration -- wound care recs per protocol Subjective Constitutional: Denies: no symptoms, chills, diaphoresis, fever, malaise, weakness, other HEENT: Denies: no symptoms, eye pain, blurred vision, tearing, double vision, ear pain, ear discharge, nose pain, nose congestion, throat pain, throat swelling, mouth pain, mouth swelling, other Cardiovascular: Denies: no symptoms, chest pain, edema, irregular heart rate, lightheadedness, palpitations, syncope, other Respiratory: Denies: no symptoms, cough, orthopnea, shortness of breath, SOB with excertion, SOB at rest, sputum, stridor, wheezing, other Gastrointestinal/Abdominal: Denies: no symptoms, abdomen distended, abdominal pain, black stools, tarry stools, blood in stool, constipated, diarrhea, difficulty swallowing, nausea, poor appetite, poor fluid intake, rectal bleeding , vomiting, other Genitourinary: Denies: no symptoms, burning, discharge, frequency, flank pain, hematuria, incontinence, pain, urgency, other Neurologic/Psychiatric: Denies: no symptoms, anxiety, depressed, emotional problems, headache, numbness, paresthesia, pre-existing deficit, seizure, tingling, tremors, weakness, other Allergies: Coded Allergies: No Known Allergies (Unverified , 09/13/18) Subjective 09/19: no events, no fevers no night sweats, off abx Objective Last 24 Hour Vital Signs Date Time Temp Pulse Resp B/P (MAP) Pulse Ox O2 Delivery O2 Flow Rate FiO2 09/19/18 12:00 98.2 81 18 89/57 (68) 97 09/19/18 09:00 Room Air 09/19/18 09:00 98.3 93 18 110/76 (87) 97 09/19/18 04:00 98.8 90 18 115/62 (79) 98 09/19/18 00:00 98.0 99 18 115/68 (84) 98 09/18/18 21:00 Room Air 09/18/18 20:00 98.2 119 18 101/71 (81) 98 09/18/18 16:00 97.9 101 18 99/62 (74) 97 Intake and Output 09/18/18 09/19/18 19:00 07:00 Intake Total 860 ml 120 ml Balance 860 ml 120 ml Intake Oral 860 ml 120 ml # Voids 6 1 Laboratory Tests 09/19/18 06:17: White Blood Count 5.5, Red Blood Count 5.28, Hemoglobin 11.7L, Hematocrit 38.3L , Mean Corpuscular Volume 72L, Mean Corpuscular Hemoglobin 22.1L, Mean Corpuscular Hemoglobin Concent 30.5L, Red Cell Distribution Width 17.8H, Platelet Count 324, Mean Platelet Volume 5.2L, Neutrophils (%) (Auto) 63.9, Lymphocytes (%) (Auto) 25.0, Monocytes (%) (Auto) 7.6, Eosinophils (%) (Auto) 2.5, Basophils (%) (Auto) 1.1, Sodium Level 139, Potassium Level 4.1, Chloride Level 104, Carbon Dioxide Level 26, Anion Gap 9, Blood Urea Nitrogen 20H, Creatinine 0.7, Estimat Glomerular Filtration Rate > 60, Glucose Level 104, Calcium Level 10.2H Height (Feet): 6 Height (Inches): 0.00 Weight (Pounds): 121 Objective Physical Exam General Appearance: A+O x3, NAD HEENT: normocephalic, atraumatic Neck: non-tender, normal alignment Respiratory/Chest: chest wall non-tender, lungs clear Cardiovascular/Chest: normal peripheral pulses, normal rate Abdomen: normal bowel sounds, non tender Extremities: normal range of motion Michael Stinson MD Sep 19, 2018 14:50
[2018-09-19 16:00] VITALS: BP 141/89
--- NOTE | 2018-09-19 17:21 | NUR ---
NURSE NOTES: DC pt in stable condition.
--- NOTE | 2018-09-23 08:15 | Discharge Summary ---
Discharge Summary Discharge Summary _ DATE OF ADMISSION: 09/13/2018 DATE OF DISCHARGE: 09/19/2018 DISCHARGED BY: REASON FOR ADMISSION: 58 years old male with past medical history of hypertension, traumatic brain injury, dysphagia, sacral decubitus ulcer stage IV, [facility] from the [facility] with left-sided hip pain. Patient himself was unable to provide complete history . CT of pelvis demonstrated acute intratrochanteric fracture of the left hip. Chest x-ray revealed prominent pulmonary interstitium, nonspecific. Patient subsequently was admitted for further evaluation and management. CONSULTANTS: pulmonary/critical care Dr. Llanos ID specialist Dr. Wills orthopedic surgery Dr. Solis general surgery Dr. Moses [facility]: Patient admitted to medical surgical floor. Pain management was addressed. Orthopedic surgery consult was requested. Left hip x-ray demonstrated nondisplaced left hip intertrochanteric fracture. Per orthopedic surgeon, patient had left hip nondisplaced intertrochanteric fracture. Patient on baseline with traumatic brain injury, nonambulatory status, and decubitus ulcer close to the area of the hip. Orthopedic surgeon discussed the patient 's condition with patient's and recommended to proceed with nonsurgical treatment. Surgeon recommended bed to chair transfer for the next 6-week with toe-touch weightbearing on the left lower extremity. Once hip fracture heals , in about 6 weeks , patient could start putting more and more pressure on the left hip. Patient's agreed with nonsurgical treatment plan. Patient will follow-up with orthopedic surgeon in 10 to 14 days in the office to repeat x-ray of the left hip. Patient started to work with physical therapy. Fall precaution maintained. General surgeon seen the patient for sacral decubitus ulcer stage IV, present on admission. Wound care provided as per general surgeon recommendation. Continue wound care at the facility. Dietary recommendations implemented in plan of care. ID specialist followed. Urine culture revealed Enterobacter. Per ID specialist patient had pyuria. Sacral decubitus ulcer did not look infected. Patient remained afebrile, no leukocytosis. Infectious disease doctor recommended to monitor patient off antibiotic, unless febrile or leukocytosis. Aspiration precaution maintained. CT of the head revealed evidence of prior bilateral craniotomy. No definite acute process. Supplemental oxygen was on board as needed. Pulse oximetry was stable on room air. DVT prophylaxis provided. Pain management was addressed as needed. Bowel regimen instituted. Blood pressure was closely monitored and remained stable. Hemoglobin and hematocrit were closely monitored with goal to keep hemoglobin above 7. Hemoglobin and hematocrit remained at the baseline. Prior to discharge hemoglobin 11.7, hematocrit 28.3. Patient clinically stabilized and was ready for transfer back to [facility] facility for continuation of care as [facility]. FINAL DIAGNOSES: Left hip nondisplaced intertrochanteric fracture Sacral decubitus ulcer stage IV , present on admission Pyuria with Enterobacter Traumatic brain injury Anemia Hypertension DISCHARGE MEDICATIONS: See Medication Reconciliation list. DISCHARGE INSTRUCTIONS: Patient was discharged to the [facility] facility as [facility]. Follow up with medical doctor at the facility. I have been assigned to dictate discharge summary for this account. I was not involved in the patient's management. Whitney Ambrocio NP Sep 23, 2018 08:15
--- NOTE | 2018-09-23 16:08 | NUR ---
*-* INSURANCE *-*. DISCHARGE SUMMARY HAVE BEEN FAXED TO: [facility]HE[facility]/MEL S/W JAMES..[facility] WILL HANDLE THIS ADMISSION...NO IPA PLEASE FAX THE REVIEW/CLINICAL P- [phone] F- [phone]....REVIEW/CLINICAL
== END 2018-09-19 17:27 | DRG 340 ==
LOC: EDBD 17:38 → EMR 19:02 → 4E 19:06 → EDBEDREQ 19:19 → 4E 09-16 10:07
DX: S72.142A Displaced intertrochanteric fracture of left femur, initial encounter for closed fracture (principal); L89.154 Pressure ulcer of sacral region, stage 4; N39.0 Urinary tract infection, site not specified; T07.XXXA Unspecified multiple injuries, initial encounter; Z87.820 Personal history of traumatic brain injury; W19.XXXA Unspecified fall, initial encounter; Y92.129 Unspecified place in nursing home as the place of occurrence of the external cause; I10 Essential (primary) hypertension; H10.9 Unspecified conjunctivitis; R53.1 Weakness; R41.0 Disorientation, unspecified; B96.89 Other specified bacterial agents as the cause of diseases classified elsewhere; R63.6 Underweight; Z68.1 Body mass index [BMI] 19.9 or less, adult
CPT/HCPCS: 36415; 70480; 71045; 72192; 73502; 80048; 80053; 81003; 82550; 82553; 84443; 84484; 85025; 87081; 87086; 87181; 93005; 99285; J8499